=== PATIENT | female | born 1995 | race Caucasian/White ===

== ENCOUNTER → 2020-01-12 12:39 | Outpatient (BNVA) | payer MEDICAID, SELFPAY | PROVIDERS: PCP Family Medicine; Referring Provider Family Medicine; Visit Provider Internal Medicine | DX: Z76.89 Persons encountering health services in other specified circumstances (principal) ==

== ENCOUNTER 2020-02-28 02:34 | Emergency (ER) | payer MEDICAID, SELFPAY | END 2020-02-28 05:26 | disposition left against medical advice (07) | PROVIDERS: Emergency Provider Emergency Medicine; PCP Family Medicine | DX: R10.9 Unspecified abdominal pain (principal) ==

== ENCOUNTER → 2020-03-01 11:35 | Outpatient (BNVA) | payer MEDICAID, SELFPAY | PROVIDERS: PCP Family Medicine; Visit Provider Internal Medicine | DX: Z76.89 Persons encountering health services in other specified circumstances (principal) ==

== ENCOUNTER 2020-03-27 13:27 | Emergency (ER) | payer MEDICAID, SELFPAY ==
--- NOTE | ~2020-03-27 | XR_ITS ---
EXAMINATION: XR ANKLE, LEFT CLINICAL INFORMATION: Twisted ankle COMPARISON: None TECHNIQUE: AP, lateral, and mortise views of the left ankle. FINDINGS: There is a bifid appearance of the distal fibula but no fracture is seen. No widening of the ankle mortise. Talar dome is intact. There is lateral greater than medial soft tissue swelling. XR/XR ankle LT min 3V IMPRESSION: There is soft tissue swelling but no acute osseous abnormality of the ankle.
[2020-03-27 16:01] VITALS: BP 142/78; PULSE 66; RESP 18; TEMP 36.5; O2SAT 100; BMI 38.7
--- NOTE | 2020-03-27 17:13 | ED.LOWEXIN ---
HPI - Extremity Injury (Lower) General Chief Complaint: Extremity Injury, Lower Stated Complaint: ankle injury Time Seen by Provider: 03/27/20 17:09 Source: patient Mode of arrival: ambulatory Limitations: no limitations History of Present Illness HPI Narrative: 24-year-old female with no significant past medical history presents with left ankle pain. Patient stated that she slipped in her ankle rolled under her, and heard a pop. She has a difficult time with flexion and extension, does not have any pain on eversion. She applied ice but states that it is difficult to walk on. MD complaint: ankle injury Onset (ago): hour(s) (Within the hour of arrival) Type of Injury: inversion Place: home Severity: moderate Severity scale (1-10): 6 Relieving factors: nothing Exacerbating factors: weight bearing, movement and palpation Context: walking Associated symptoms: snap/pop sensation and able to partially bear weight Other symptoms: none Related Data Home Medications Medication Instructions Recorded Confirmed acetaminophen 325 mg tablet 650 mg PO Q6H PRN 01/12/20 01/12/20 albuterol sulfate 90 mcg/actuation 2 puff INHALATION Q6H PRN 01/12/20 01/12/20 aerosol inhaler loratadine 10 mg tablet 10 mg PO DAILY 01/12/20 01/12/20 meclizine 12.5 mg tablet 12.5 mg PO DAILY 01/12/20 01/12/20 sumatriptan succinate 50 mg tablet 50 mg PO Q2-4H PRN 01/12/20 01/12/20 Previous Rx's Medication Instructions Recorded ibuprofen 600 mg PO TID PRN #30 tab 03/27/20 Allergies Allergy/AdvReac Type Severity Reaction Status Date / Time No Known Allergies Allergy Verified 03/27/20 16:01 Review of Systems Review of Systems: Constitutional: No Fever, No Chills ENT/Mouth: No Ear Pain, No Hoarseness, No sore throat Eyes: No Eye Pain, No Swelling, No Redness, No Foreign Body Cardiovascular: No Chest Pain, No SOB Respiratory: No Cough, No Dyspnea Gastrointestinal: No Nausea, No Vomiting, No Diarrhea, No abdominal Pain Genitourinary: No Dysuria, No Hematuria Musculoskeletal: positive left ankle pain, No Myalgias, No Joint Swelling Skin: No Skin lacerations, No rash Neuro: No Weakness, No Numbness, No Paresthesias, No Loss of Consciousness, No Dizziness, No Headache Psych: No Anxiety/Panic, No Depression Heme/Lymph: no easy bruising, no Lymphadenopathy Endocrine: No Polyuria, No Polydipsia Yes all other systems are reviewed and are negative [facility] Past Medical History Attestation statement: The following information was validated with the patient. Source: old records reviewed Medical History Amenorrhea Migraine Vitamin D deficiency Weight loss Surgical History [place] teeth extracted Family History Family History Father Diabetes High cholesterol Mother Hypertension Depression Social History Social History Alcohol intake: current Smoking Status: Current every day smoker Cigarettes Per Day: 6 Years Smoked: 5 Advance Directives: No Advance Directives Information Provided: Yes Physical Exam Vital Signs: Vital Signs: Last Vital Signs Temp 97.7 F 03/27/20 16:01 Pulse 66 03/27/20 16:01 Resp 18 03/27/20 16:01 BP 142/78 H 03/27/20 16:01 Pulse Ox 100 03/27/20 16:01 Body Mass Index 38.7 Appearance: Alert. Oriented X3. Mild distress. Eyes: Pupils equal, round and reactive to light. ENT: Pharynx normal. Neck: Normal inspection. Neck supple. CVS: Normal heart rate and rhythm. Pulses normal. Respiratory: No respiratory distress. Breath sounds normal. Abdomen: Soft and nontender. Skin: Skin warm and dry. Normal skin color. Normal skin turgor. Extremities: Tender to palpation to the lateral malleolar, strength 5/5 however tender on flexion, pain on internal rotation to the left ankle. Right ankle has full range of motion with no indication of injury. Neuro: No motor deficit. No sensory deficit. Course Course Course Narrative: 24-year-old female presents with a rolled left ankle, x-rays are negative for fracture or dislocation, will have patient follow-up with Orthopedics as this is suspected to be a sprain. Will place an Vishnu wrap, give crutches, and Motrin for pain management. Patient verbalized understanding of and agrees plan of care discharge home. MDM - Extremity Injury (Lower) Differential Diagnosis Differential diagnosis: Likely ankle sprain and strain Medical Records Attestation: I reviewed the patient's medical records. Lab Data Attestation: I reviewed the patient's lab results. Imaging Data Left ankle x-ray: Attestation: I personally reviewed and interpreted this imaging study as follows: Radiologist's impression: EXAMINATION: XR ANKLE, LEFT CLINICAL INFORMATION: Twisted ankle COMPARISON: None TECHNIQUE: AP, lateral, and mortise views of the left ankle. FINDINGS: There is a bifid appearance of the distal fibula but no fracture is seen. No widening of the ankle mortise. Talar dome is intact. There is lateral greater than medial soft tissue swelling. XR/XR ankle LT min 3V IMPRESSION: There is soft tissue swelling but no acute osseous abnormality of the ankle. Discharge Plan Discharge Clinical Impression: Sprain and strain of left ankle Patient Disposition: Home, Self-Care Instructions: Ankle Sprain (ED) Additional Instructions: You were evaluated for injury sustained to the left ankle. Please follow-up with orthopedics. Use Vishnu wrap, ice and Motrin to help reduce pain and swelling. Use crutches to ambulate. It is suspected that you have a ligament or tendon injury. Thank you for choosing this emergency department for evaluation. Please follow-up with primary care physician as needed. Return to the emergency department for any new, concerning, or worsening symptoms. Prescriptions: New ibuprofen 600 mg tablet 600 mg PO TID PRN (Reason: pain) Qty: 30 RF: 0 No Action acetaminophen [Tylenol] 325 mg tablet 650 mg PO Q6H PRNRF: 0 meclizine 12.5 mg tablet 12.5 mg PO DAILY RF: 0 loratadine 10 mg tablet 10 mg PO DAILY RF: 0 sumatriptan succinate [Imitrex] 50 mg tablet 50 mg PO Q2-4H PRNRF: 0 albuterol sulfate 90 mcg/actuation HFA aerosol inhaler 2 puff inhalation Q6H PRNRF: 0 Referrals: Ken Rodriguez MD [Physician] - 2 days (Left ankle sprain) Stand Alone Forms: Work/School Release Interventions: ED Discharge Assessment Last Done: 03/27/20 18:27 Discharge Date/Time: 03/27/20 18:29
[2020-03-27] MEDS: Ibuprofen 600 MG TABLET PO (17:48)
== END 2020-03-27 18:29 | disposition home or self-care (01) ==
PROVIDERS: Emergency Provider Internal Medicine; PCP Family Medicine
DX: S93.402A Sprain of unspecified ligament of left ankle, initial encounter (principal); S96.912A Strain of unspecified muscle and tendon at ankle and foot level, left foot, initial encounter; X50.1XXA Overexertion from prolonged static or awkward postures, initial encounter; Y93.9 Activity, unspecified; Y92.014 Private driveway to single-family (private) house as the place of occurrence of the external cause; Y99.9 Unspecified external cause status
CPT/HCPCS: 73610; 99283

== ENCOUNTER → 2020-03-29 07:33 | Outpatient (BNVA) | payer MEDICAID, SELFPAY | PROVIDERS: PCP Family Medicine; Visit Provider Internal Medicine ==

== ENCOUNTER → 2020-06-26 08:19 | Outpatient (BNVA) | payer MEDICAID, SELFPAY | PROVIDERS: PCP Family Medicine; Visit Provider Internal Medicine ==

== ENCOUNTER → 2020-07-19 13:52 | Outpatient (BNVA) | payer MEDICAID, SELFPAY | PROVIDERS: PCP Family Medicine; Visit Provider Internal Medicine ==

== ENCOUNTER 2020-09-08 21:53 | Emergency (ER) | payer MEDICAID, SELFPAY ==
--- NOTE | ~2020-09-08 | US_ITS ---
EXAMINATION: ULTRASOUND PELVIS CLINICAL INFORMATION: Heavy vaginal bleeding COMPARISON: 10/18/2019 TECHNIQUE: Sonographic evaluation of the pelvis was performed transabdominally and transvaginally. FINDINGS: The uterus measures 11.0 cm in length and 5.0 x 6.0 cm in AP and transverse dimensions. The endometrial stripe measures 0.6 cm in thickness. The right ovary measures 4.2 x 2.4 x 3.4 cm and appears unremarkable. The left ovary measures 4.2 x 2.3 x 2.8 cm and also appears unremarkable. No free fluid is seen. US/US pelvic and transvaginal IMPRESSION: No acute findings identified.
[2020-09-08 22:16] VITALS: BP 136/92; PULSE 76; RESP 18; TEMP 36.6; O2SAT 98; BMI 38.9
--- NOTE | 2020-09-08 23:06 | ED_ITS ---
HPI - Female Genitourinary General Chief complaint: Vaginal Bleeding Stated complaint: Heavy menstrual Time Seen by Provider: 09/08/20 22:41 Source: patient Mode of arrival: ambulatory Limitations: no limitations History of Present Illness MD elicited complaint: vaginal bleeding Pertinent past history: other (PCOS and heavy periods) Onset (ago): day(s) (20 days ago) Location of symptoms: suprapubic Severity: moderate Quality of pain: cramping Consistency: constant Vaginal bleeding: heavy Exacerbating factors: none Relieving factors: none Associated symptoms: abdominal pain and weakness Treatment prior to arrival: none Related Data Home Medications Medication Instructions Recorded Confirmed acetaminophen 325 mg tablet 650 mg PO Q6H PRN 01/12/20 06/26/20 albuterol sulfate 90 mcg/actuation 2 puff INHALATION Q6H PRN 01/12/20 06/26/20 aerosol inhaler sumatriptan succinate 50 mg tablet 50 mg PO Q2-4H PRN 01/12/20 06/26/20 Previous Rx's Medication Instructions Recorded ibuprofen 600 mg PO TID PRN #30 tab 03/27/20 medroxyprogesterone [Provera] 10 mg PO DAILY 9 Days #9 tab 09/09/20 nitrofurantoin monohyd/m-cryst 100 mg PO BID 5 Days #10 cap 09/09/20 [Macrobid] Allergies Allergy/AdvReac Type Severity Reaction Status Date / Time No Known Allergies Allergy Verified 07/19/20 15:17 Review of Systems Review of Systems: Constitutional : No Fever, No Chills ENT/Mouth : No sore throat, No Rhinorrhea Eyes: No Eye Pain, No Redness Cardiovascular : No Chest Pain, No SOB Respiratory : No Cough, No Sputum, No Wheezing Gastrointestinal : positive Nausea, No Vomiting, No Diarrhea, positive abdominal pain, Genitourinary : positive irregular bleeding, No Dysuria, No Urinary Frequency, positive pelvic pain Musculoskeletal : No Myalgias Skin : No rash Neuro : pos Weakness, No Headache Psych : No Anxiety/Panic, No Depression Heme/Lymph: No bruising, No Lymphadenopathy Endocrine : No Polyuria, No Polydipsia All other systems reviewed and are negative PMFSH Past Medical History Attestation statement: The following information was validated with the patient. Medical History Amenorrhea Migraine Vitamin D deficiency Weight loss Surgical History History of surgery [place] teeth extracted Family History Family History Father Diabetes High cholesterol Mother Hypertension Depression Social History Social History Alcohol intake: unknown Patient Tobacco Use Status: Current everyday Tobacco user Cigarettes Per Day: 3 Years Smoked: 5 Use of substances other than those prescribed or required for medical reasons: Unknown Advance Directives: No Advance Directives Information Provided: No Patient : No Physical Exam Vital Signs: Vital Signs: Last Vital Signs Temp 97.9 F 09/08/20 22:16 Pulse 65 09/09/20 00:22 Resp 16 09/09/20 00:22 BP 105/58 L 09/09/20 00:22 Pulse Ox 98 09/09/20 00:22 Body Mass Index 38.9 Appearance: Alert. Oriented X3. No acute distress. Eyes: Pupils equal, round and reactive to light. ENT: Pharynx normal. Neck: Normal inspection. Neck supple. CVS: Normal heart rate and rhythm. Pulses normal. Respiratory: No respiratory distress. Breath sounds normal. Abdomen: Soft and mild suprapubic ttp no rebound or guarding : 1 scopette of blood no clots seen Skin: Skin warm and dry. Normal skin color. Normal skin turgor. Extremities: No lower extremity edema. No calf ttp Neuro: Oriented X 3. No motor deficit. No sensory deficit. Course Course Course Narrative: VS and H/H stable plan for DC MDM - Female Genitourinary MDM Narrative Medical decision making narrative: 25 yo female with a hx of HTN, PCOS at this time c/o suprapubic cramping and heavy vaginal bleeding - at this time labs, US ordered, states no OCPs work for - possible provera with close follow up with OBGYN given history of withdrawal bleeding states no other combinations work for her, dispo per results and findings. Lab Data Result diagrams: 09/08/20 23:17 09/09/20 00:26 Labs: Lab Results 09/08/20 09/09/20 09/09/20 Range/Units 23:17 00:26 00:26 WBC 13.6 H (4.8-10.8) X10*3/uL RBC 4.40 (4.20-5.50) X10*6/uL Hgb 13.1 (12.0-16.0) g/dl Hct 38.8 (37-47) % MCV 88.2 (80-98) fL MCH 29.8 (27.0-33.0) pg MCHC 33.8 (31.0-35.0) g/dl RDW 12.6 (11.0-16.0) % Plt Count 267 (160-400) X10*3/uL MPV 11.2 (9.4-12.3) fL Immature Gran % (Auto) 0.4 (0.0-0.4) % Neut % (Auto) 59.9 (45-73) % Lymph % (Auto) 32.5 (20-40) % [place] % (Auto) 5.7 (2-11) % Eos % (Auto) 1.1 (0-4) % Baso % (Auto) 0.4 (0-2) % Lymph # (Auto) 4.4 (1.2-4.9) X10*3/uL [place] # (Auto) 0.8 (0.1-1.2) X10*3/uL Eos # (Auto) 0.2 (0.0-0.4) X10*3/uL Baso # (Auto) 0.1 (0.0-0.2) X10*3/uL Abs Immat Gran (auto) 0.06 H (0.00-0.03) X10*3/uL Absolute Neuts (auto) 8.1 (2.0-8.3) X10*3/uL Absolute Nucleated RBC 0.000 (0.0-0.012) X10*3/uL Nucleated RBC % (auto) 0.0 (0.0-0.2) /100WBC Sodium 136 (135-145) mmol/L Potassium 3.1 L (3.3-5.1) mmol/L Chloride 99 (96-108) mmol/L Carbon Dioxide 29 (22-29) mmol/L Anion Gap 11 L (12-20) BUN 13 (9-16) mg/dL Creatinine 0.77 (0.5-1.4) mg/dL Estim Creat Clear Calc 115.4 Estimated GFR > 60 Random Glucose 119 H (60-115) mg/dL Calcium 9.3 (8.4-10.2) mg/dL Total Bilirubin 0.2 (0.0-1.0) mg/dL AST 23 (5-31) U/L ALT 19 (0-31) U/L Alkaline Phosphatase 64 (39-117) U/L Total Protein 7.0 (6.5-8.0) g/dL Albumin 3.9 (3.5-5.0) g/dL Urine Color RED Urine Appearance CLOUDY Urine pH 7.0 (5.0-8.0) Ur Specific [place] <= 1.005 (1.005-1.025) Urine Protein 2+ H (NEG-TRACE) MG/DL Urine Glucose (UA) NEG (NEG) MG/DL Urine Ketones NEG (NEG) MG/DL Urine Blood 3+ H (NEG) Urine Nitrite POS H (NEG) Ur Leukocyte Esterase 3+ H (NEG) Urine RBC 30-49 H (0) /HPF Urine WBC 0-2 (0-4) /HPF Ur Squamous Epith Cells 1+ /LPF Amorphous Sediment 3+ /LPF Urine Bacteria NONE /LPF Urine Test (NEGATIVE) 09/09/20 Range/Units 00:26 WBC (4.8-10.8) X10*3/uL RBC (4.20-5.50) X10*6/uL Hgb (12.0-16.0) g/dl Hct (37-47) % MCV (80-98) fL MCH (27.0-33.0) pg MCHC (31.0-35.0) g/dl RDW (11.0-16.0) % Plt Count (160-400) X10*3/uL MPV (9.4-12.3) fL Immature Gran % (Auto) (0.0-0.4) % Neut % (Auto) (45-73) % Lymph % (Auto) (20-40) % [place] % (Auto) (2-11) % Eos % (Auto) (0-4) % Baso % (Auto) (0-2) % Lymph # (Auto) (1.2-4.9) X10*3/uL [place] # (Auto) (0.1-1.2) X10*3/uL Eos # (Auto) (0.0-0.4) X10*3/uL Baso # (Auto) (0.0-0.2) X10*3/uL Abs Immat Gran (auto) (0.00-0.03) X10*3/uL Absolute Neuts (auto) (2.0-8.3) X10*3/uL Absolute Nucleated RBC (0.0-0.012) X10*3/uL Nucleated RBC % (auto) (0.0-0.2) /100WBC Sodium (135-145) mmol/L Potassium (3.3-5.1) mmol/L Chloride (96-108) mmol/L Carbon Dioxide (22-29) mmol/L Anion Gap (12-20) BUN (9-16) mg/dL Creatinine (0.5-1.4) mg/dL Estim Creat Clear Calc Estimated GFR Random Glucose (60-115) mg/dL Calcium (8.4-10.2) mg/dL Total Bilirubin (0.0-1.0) mg/dL AST (5-31) U/L ALT (0-31) U/L Alkaline Phosphatase (39-117) U/L Total Protein (6.5-8.0) g/dL Albumin (3.5-5.0) g/dL Urine Color Urine Appearance Urine pH (5.0-8.0) Ur Specific [place] (1.005-1.025) Urine Protein (NEG-TRACE) MG/DL Urine Glucose (UA) (NEG) MG/DL Urine Ketones (NEG) MG/DL Urine Blood (NEG) Urine Nitrite (NEG) Ur Leukocyte Esterase (NEG) Urine RBC (0) /HPF Urine WBC (0-4) /HPF Ur Squamous Epith Cells /LPF Amorphous Sediment /LPF Urine Bacteria /LPF Urine Test NEGATIVE (NEGATIVE) Discharge Plan Discharge Clinical Impression: Vaginal bleeding, UTI (urinary tract infection), Hypokalemia Patient Disposition: Home, Self-Care Instructions: Dysfunctional Uterine Bleeding (ED), Urinary Tract Infection in Women (ED), Hypokalemia (ED) Additional Instructions: return to ED for any worsening symptoms or concerns please call your OBGYN as soon as possible ultrasound findings: FINDINGS: The uterus measures 11.0 cm in length and 5.0 x 6.0 cm in AP and transverse dimensions. The endometrial stripe measures 0.6 cm in thickness. The right ovary measures 4.2 x 2.4 x 3.4 cm and appears unremarkable. The left ovary measures 4.2 x 2.3 x 2.8 cm and also appears unremarkable. No free fluid is seen. US/US pelvic and transvaginal IMPRESSION: No acute findings identified. Prescriptions: New medroxyprogesterone [Provera] 10 mg tablet 10 mg PO DAILY 9 Days Qty: 9 RF: 0 nitrofurantoin monohyd/m-cryst [Macrobid] 100 mg capsule 100 mg PO BID 5 Days Qty: 10 RF: 0 No Action ibuprofen 600 mg tablet 600 mg PO TID PRN (Reason: pain) Qty: 30 RF: 0 acetaminophen [Tylenol] 325 mg tablet 650 mg PO Q6H PRNRF: 0 sumatriptan succinate [Imitrex] 50 mg tablet 50 mg PO Q2-4H PRNRF: 0 albuterol sulfate 90 mcg/actuation HFA aerosol inhaler 2 puff inhalation Q6H PRNRF: 0 Stand Alone Forms: Work/School Release
[2020-09-08 23:22] LABS: MANUAL DIFF FLAG NO
[2020-09-08 23:23] LABS: Basophils Absolute Auto 0.1 X10*3/uL (0.0-0.2); Basophils Percent Auto 0.4 % (0-2); Eosinophils Absolute Auto 0.2 X10*3/uL (0.0-0.4); Eosinophils Percent Auto 1.1 % (0-4); Hematocrit 38.8 % (37-47); Hemoglobin 13.1 g/dl (12.0-16.0); Imm Gran Abs Auto 0.06 X10*3/uL (0.00-0.03); Imm Gran Pct Auto 0.4 % (0.0-0.4); Lymphocytes Absolute Auto 4.4 X10*3/uL (1.2-4.9); Lymphocytes Percent Auto 32.5 % (20-40); Mean Corpuscular HGB Conc 33.8 g/dl (31.0-35.0); Mean Corpuscular Hemoglobin 29.8 pg (27.0-33.0); Mean Corpuscular Volume 88.2 fL (80-98); Mean Platelet Volume 11.2 fL (9.4-12.3); Monocytes Absolute Auto 0.8 X10*3/uL (0.1-1.2); Monocytes Percent Auto 5.7 % (2-11); Neutrophils Absolute Auto 8.1 X10*3/uL (2.0-8.3); Neutrophils Percent Auto 59.9 % (45-73); Platelet Count 267 X10*3/uL (160-400); Red Cell Distribution Width 12.6 % (11.0-16.0); White Blood Count 13.6 X10*3/uL (4.8-10.8)
[2020-09-08] MEDS: Ibuprofen 600 MG TABLET PO (23:24)
[2020-09-08] MEDS: Acetaminophen 325 MG TABLET 650 MG PO (23:24)
[2020-09-08] MEDS: 0.9 % Sodium Chloride 1,000 ML 999 ML IVCONT (23:26)
[2020-09-09 00:22] VITALS: BP 105/58; PULSE 65; RESP 16; O2SAT 98
[2020-09-09 00:42] LABS: Glucose Urine UA NEG (NEG); Leukocyte Esterase Urine 3+ (NEG); Nitrite Urine POS (NEG); Specific Gravity - Urine <= 1.005 (1.005-1.025); UACC Culture Trigger YES; Urine Blood 3+ (NEG); Urine Ketones NEG (NEG); Urine Protein 2+ MG/DL (NEG-TRACE)
[2020-09-09 00:43] LABS: Appearance Urine CLOUDY; Color Urine RED
[2020-09-09 00:44] LABS: UPreg QC Valid YES; Urine Pregnancy NEGATIVE (NEGATIVE)
[2020-09-09 00:46] LABS: Amorphous Sediment Urine 3+ /LPF; RBC Urine 30-49 /HPF (0); Squamous Epithelial Cell Urine 1+ /LPF; WBC Urine 0-2 /HPF (0-4)
[2020-09-09 00:59] LABS: Alanine Aminotransferase 19 U/L (0-31); Albumin Level 3.9 g/dL (3.5-5.0); Alkaline Phosphatase 64 U/L (39-117); Anion Gap 11 (12-20); Aspartate Amino Transferase 23 U/L (5-31); Bilirubin Total 0.2 mg/dL (0.0-1.0); Blood Urea Nitrogen 13 mg/dL (9-16); Calcium 9.3 mg/dL (8.4-10.2); Carbon Dioxide 29 mmol/L (22-29); Chloride 99 mmol/L (96-108); Creatinine Clr Calc Pharmacy 115.4; Estimated Glomerular Filt Rate > 60; Glucose Random 119 mg/dL (60-115); Potassium 3.1 mmol/L (3.3-5.1); Sodium 136 mmol/L (135-145)
[2020-09-09] MEDS: cefTRIAXone sodium 1 GM in 0.9 % Sodium Chloride 50 ML IV (01:12)
[2020-09-09] MEDS: Potassium Chloride ER 20 MEQ TAB.ER.PRT 40 MEQ PO (01:12)
== END 2020-09-09 01:42 | disposition home or self-care (01) ==
PROVIDERS: Emergency Provider Emergency Medicine; PCP Family Medicine
DX: N93.9 Abnormal uterine and vaginal bleeding, unspecified (principal); N39.0 Urinary tract infection, site not specified; E87.6 Hypokalemia; F17.210 Nicotine dependence, cigarettes, uncomplicated; Z71.6 Tobacco abuse counseling; Z79.899 Other long term (current) drug therapy
CPT/HCPCS: 36415; 76830; 76856; 80053; 81001; 81003; 81025; 85025; 87086; 96361; 96365; 96375; 99285; J0696

== ENCOUNTER → 2020-10-04 11:56 | Outpatient (BNVA) | payer MEDICAID, SELFPAY | PROVIDERS: PCP Family Medicine; Visit Provider Internal Medicine ==

== ENCOUNTER → 2021-01-17 09:53 | Outpatient (BNVA) | payer MEDICAID, SELFPAY | PROVIDERS: PCP Family Medicine; Visit Provider Internal Medicine ==

== ENCOUNTER 2022-08-30 12:17 | Outpatient (REF) | payer MEDICAID, SELFPAY ==
--- NOTE | ~2022-08-30 | XR_ITS ---
EXAMINATION: XR KNEE, RIGHT CLINICAL INFORMATION: Right knee pain. No injury. COMPARISON: None available. TECHNIQUE: Four views of the right knee. FINDINGS: Alignment is anatomic. Joint spaces are maintained. No displaced fracture. No significant joint effusion. XR/XR knee RT 3V IMPRESSION: No acute abnormality.
== END 2022-08-30 12:18 | disposition home or self-care (01) ==
LOC: HO.HHCX 12:17
PROVIDERS: Visit Provider Internal Medicine
DX: M25.561 Pain in right knee (principal)
CPT/HCPCS: 73562

== ENCOUNTER 2022-11-15 09:54 | Outpatient (REF) | payer MEDICAID, SELFPAY ==
[2022-11-15 11:14] LABS: MANUAL DIFF FLAG NO
[2022-11-15 11:31] LABS: Basophils Absolute Auto 0.1 X10*3/uL (0.0-0.2); Eosinophils Absolute Auto 0.1 X10*3/uL (0.0-0.4); Eosinophils Percent Auto 1.4 % (0-4); Hematocrit 46.6 % (37.0-47.0); Hemoglobin 15.6 g/dl (12.0-16.0); Imm Gran Abs Auto 0.04 X10*3/uL (0.00-0.03); Imm Gran Pct Auto 0.4 % (0.0-0.4); Lymphocytes Absolute Auto 3.2 X10*3/uL (1.2-4.9); Lymphocytes Percent Auto 33.5 % (20-40); Mean Corpuscular HGB Conc 33.5 g/dl (31.0-35.0); Mean Corpuscular Hemoglobin 30.1 pg (27.0-33.0); Mean Corpuscular Volume 89.8 fL (80.0-98.0); Mean Platelet Volume 11.9 fL (9.4-12.3); Monocytes Absolute Auto 0.6 X10*3/uL (0.1-1.2); Monocytes Percent Auto 6.1 % (2-11); Neutrophils Absolute Auto 5.6 x10*3/uL (2.0-8.3); Neutrophils Percent Auto 57.6 % (45-73); Platelet Count 306 X10*3/uL (160-400); Red Blood Count 5.19 X10*6/uL (4.20-5.50); Red Cell Distribution Width 13.4 % (11.0-16.0); White Blood Count 9.7 X10*3/uL (4.8-10.8)
[2022-11-15 11:41] LABS: Alanine Aminotransferase 43 U/L (0-31); Albumin Level 4.5 g/dL (3.5-5.0); Alkaline Phosphatase 78 U/L (39-117); Anion Gap 17 (12-20); Aspartate Amino Transferase 24 U/L (5-31); Bilirubin Direct < 0.2 mg/dL (0.0-0.5); Bilirubin Total 0.2 mg/dL (0.0-1.0); Blood Urea Nitrogen 11 mg/dL (9-16); Calcium 9.9 mg/dL (8.4-10.2); Carbon Dioxide 25 mmol/L (22-29); Chloride 99 mmol/L (96-108); Cholesterol 251 mg/dL (<200); Estimated Glomerular Filt Rate > 60; Glucose Random 123 mg/dL (60-115); HDL Cholesterol 46 mg/dL (>40); Iron 53 mcg/dL (30-160); LDL Cholesterol Calculated 156 mg/dL (<100); Percent Iron Saturation 18 % (15-50); Potassium 4.2 mmol/L (3.3-5.1); Sodium 137 mmol/L (135-145); Total Iron Binding Capacity 297 mcg/dL (228-428); Total Protein 8.4 g/dL (6.5-8.0); Triglycerides 246 mg/dL (<150); Unsaturated Iron Binding 244 ug/dL
[2022-11-15 11:58] LABS: Estimated Average Glucose 126 mg/dL; Vitamin B12 464 pg/mL (200-900)
[2022-11-15 12:00] LABS: Ferritin 90 ng/mL (10-122); HCG Quantitative < 2 mIU/mL; TSH reflex Free T4 18.49 uIU/mL (0.32-4.0)
[2022-11-15 13:01] LABS: Free T4 (Free Thyroxine) 0.71 ng/dL (0.71-1.85)
[2022-11-15 13:40] LABS: CT PCR NOT DETECTED (Not Detect.); NG PCR NOT DETECTED (Not Detect.)
[2022-11-16 03:29] LABS: Syphilis Screen Nonreactive (Nonreactive)
[2022-11-16 03:37] LABS: HIV AB/AG Nonreactive (Nonreactive); HIV Num 1 0.05 S/CO (0.00-0.99); ~Hepatitis C Antibody Nonreactive (Nonreactive)
== END 2022-11-15 09:55 | disposition home or self-care (01) ==
LOC: HO.HHCL 09:54
PROVIDERS: Visit Provider Family Medicine
DX: Z11.4 Encounter for screening for human immunodeficiency virus [HIV] (principal); Z11.3 Encounter for screening for infections with a predominantly sexual mode of transmission; E28.2 Polycystic ovarian syndrome; N92.6 Irregular menstruation, unspecified; R73.03 Prediabetes
CPT/HCPCS: 0353U; 80048; 80061; 80076; 82607; 82728; 83036; 83540; 84439; 84443; 84702; 85025; 86780; 86803; 87389

== ENCOUNTER 2023-03-04 23:41 | Emergency (ER) | payer MEDICAID, SELFPAY ==
[2023-03-04 23:53] VITALS: BP 142/90; PULSE 76; RESP 16; TEMP 37.1; O2SAT 97; BMI 43.8
[2023-03-05 02:35] VITALS: BP 146/86; PULSE 82; RESP 16; TEMP 37.1; O2SAT 98
[2023-03-05 06:03] VITALS: BP 147/92; PULSE 74; RESP 16; TEMP 36.4; O2SAT 100
== END 2023-03-05 07:45 | disposition left against medical advice (07) ==
PROVIDERS: Emergency Provider Emergency Medicine; PCP Family Medicine
DX: R51.9 Headache, unspecified (principal)
CPT/HCPCS: 99281

== ENCOUNTER 2023-04-28 12:00 | Outpatient (REF) | payer MEDICAID, SELFPAY ==
[2023-04-29 13:02] LABS: Appearance Urine Turbid; Color Urine Orange; Glucose Urine UA Negative (Negative); Leukocyte Esterase Urine Small (1+) (Negative); Nitrite Urine Positive (Negative); Specific Gravity - Urine 1.025 (1.005-1.025); UMIC TRIGGER UACC YES; Urine Blood Large (3+) (Negative); Urine Ketones Negative (Negative); Urine Protein >=1000 (4+) mg/dL (Neg-Trace)
[2023-04-29 13:03] LABS: Bacteria Urine 4+ (None Seen); RBC Urine >20 /HPF (0-2); Squamous Epithelial Cell Urine >20 /HPF (0-2); UACC Culture Trigger YES; WBC Urine >50 /HPF (0-5)
== END 2023-04-28 12:01 | disposition home or self-care (01) ==
LOC: HO.HHCLNP 12:00
PROVIDERS: Visit Provider Internal Medicine
DX: N30.01 Acute cystitis with hematuria (principal)
CPT/HCPCS: 81001; 87086; 87088; 87186

== ENCOUNTER 2023-09-01 09:54 | Outpatient (REF) | payer MEDICAID, SELFPAY ==
[2023-09-01 11:17] LABS: Hematocrit 44.4 % (37.0-47.0); Hemoglobin 14.8 g/dl (12.0-16.0); Mean Corpuscular HGB Conc 33.3 g/dl (31.0-35.0); Mean Corpuscular Volume 90.1 fL (80.0-98.0); Mean Platelet Volume 11.2 fL (9.4-12.3); Platelet Count 343 X10*3/uL (160-400); Red Blood Count 4.93 X10*6/uL (4.20-5.50); Red Cell Distribution Width 13.1 % (11.0-16.0); White Blood Count 9.1 X10*3/uL (4.8-10.8)
[2023-09-01 11:38] LABS: Alanine Aminotransferase 29 U/L (0-31); Albumin Level 4.1 g/dL (3.5-5.0); Alkaline Phosphatase 72 U/L (39-117); Amylase 73 U/L (28-100); Anion Gap 10 (12-20); Aspartate Amino Transferase 21 U/L (5-31); Bilirubin Direct 0.2 mg/dL (0.0-0.5); Bilirubin Total 0.5 mg/dL (0.0-1.0); Blood Urea Nitrogen 10 mg/dL (9-16); Calcium 9.1 mg/dL (8.4-10.2); Carbon Dioxide 27 mmol/L (22-29); Chloride 106 mmol/L (96-108); Cholesterol 215 mg/dL (<200); Estimated Glomerular Filt Rate > 60; Glucose Random 101 mg/dL (60-115); HDL Cholesterol 35 mg/dL (>40); LDL Cholesterol Calculated 150 mg/dL (<100); Lipase 31 U/L (8-78); Potassium 4.2 mmol/L (3.3-5.1); Sodium 139 mmol/L (135-145); Total Protein 7.6 g/dL (6.5-8.0); Triglycerides 152 mg/dL (<150)
[2023-09-01 11:43] LABS: Estimated Average Glucose 120 mg/dL; Hemoglobin A1c % 5.8 % (<6.0)
[2023-09-01 11:53] LABS: Free T4 (Free Thyroxine) 0.88 ng/dL (0.71-1.85); Thyroid Stimulating Hormone 1.33 uIU/mL (0.32-4.0)
== END 2023-09-01 09:55 | disposition home or self-care (01) ==
LOC: HO.HHCL 09:54
PROVIDERS: Visit Provider Family Medicine
DX: R10.13 Epigastric pain (principal)
CPT/HCPCS: 36415; 80048; 80061; 80076; 82150; 82306; 83036; 83690; 84439; 84443; 85027

== ENCOUNTER 2023-12-27 19:13 | Emergency (ER) | payer MEDICAID, SELFPAY ==
--- NOTE | 2023-12-27 19:16 | ECG_ITS ---
Test Reason : CP Blood Pressure : / mmHG Vent. Rate : 080 BPM Atrial Rate : 080 BPM P-R Int : 130 ms QRS Dur : 068 ms QT Int : 368 ms P-R-T Axes : 018 -08 024 degrees QTc Int : 424 ms Normal sinus rhythm Minimal voltage criteria for LVH, may be normal variant ( R in aVL ) Borderline ECG When compared with ECG of 04-SEP-2018 04:02, No significant change was found Referred By: Generic ED Physician Electronically Signed By:JOSSE ARMSTRONG MD
[2023-12-27 19:24] VITALS: BP 124/85; PULSE 80; RESP 16; TEMP 36.2; O2SAT 97; BMI 37.1
--- NOTE | 2023-12-27 19:26 | ED_ITS ---
HPI - Chest Pain General Chief Complaint: Chest Pain Stated Complaint: Chest Pains Time Seen by Provider: 12/27/23 21:08 Source: patient Mode of arrival: ambulatory Limitations: no limitations History of Present Illness ED Provider: alba BURCIAGA narrative: Patient no significant past medical history nonsmoker nonalcoholic no significant cardiac history in the family no substance abuse comes here for pain in the mid chest since she woke up in the which increases on and palpation no shortness a breath no cough no fever no chills Related Data Home Medications ?Medication ?Instructions ?Recorded ?Confirmed acetaminophen 325 mg tablet 650 mg PO Q6H PRN 01/12/20 01/17/21 (Tylenol) albuterol sulfate 90 mcg/actuation 2 puff inhalation Q6H PRN 01/12/20 01/17/21 aerosol inhaler sumatriptan succinate 50 mg tablet 50 mg PO Q2-4H PRN 01/12/20 01/17/21 (Imitrex) hydrochlorothiazide 25 mg tablet 25 mg PO DAILY 10/04/20 01/17/21 Previous Rx's ?Medication ?Instructions ?Recorded ibuprofen 600 mg tablet 600 mg PO TID PRN pain #30 tabs 03/27/20 ibuprofen 600 mg tablet 600 mg PO Q6H PRN fever or pain 12/27/23 #30 tabs Allergies Allergy/AdvReac Type Severity Reaction Status Date / Time Penicillins [PCN] Allergy Itching Verified 12/27/23 19:26 Review of Systems 2 Review of Systems: Yes all other systems are reviewed and are negative PMFSH Past Medical History Medical History Menorrhagia Weight loss Vitamin D deficiency Amenorrhea Migraine Surgical History History of surgery [place] teeth extracted Family History Family History Father Diabetes High cholesterol Mother Hypertension Depression Social History Social History Alcohol intake: current Alcohol intake frequency: does not drink Patient Tobacco Use Status: Current everyday Tobacco user Cigarettes Per Day: 3 Years Smoked: 5 Smoked in Last 30 Days: Yes Use of substances other than those prescribed or required for medical reasons: No Advance Directives: No Advance Directives Information Provided: Yes Do you have a plan to hurt others: No Plan Patient : No Physical Exam 2 Vital Signs: Vital Signs: Last Vital Signs Temp 98.8 F 12/27/23 21:44 Pulse 75 12/27/23 21:44 Resp 18 12/27/23 21:44 BP 131/71 12/27/23 21:44 Pulse Ox 98 12/27/23 21:44 O2 Del Method Room Air 12/27/23 21:44 BMI result Body Mass Index 37.1 Appearance: Alert. Oriented X3. No acute distress. Eyes: PERRLA, No Nystagmus ENT: Pharynx normal. Oral Mucosa moist Neck: Normal inspection. Neck supple. CVS: Normal heart rate and rhythm. Pulses normal. No murmur rub or gallop tenderness to palpate on 2nd intercostal space bilaterally Respiratory: No respiratory distress. Equal air entry bilateral, no wheezing/rales/rhonchi Abdomen: Soft and nontender. Bowel sounds are present, no mass palpable, no CVA tenderness Skin: Skin warm and dry. Normal skin color. Normal skin turgor. Extremities: No lower extremity edema. No calf tenderness Neuro: Oriented X 3. No motor deficit. Course Course Course Narrative: This is an RME performed by Mio Jean CNP: Additional HPI, ROS, PE not included below will be deferred to primary provider. Patient is a 28-year-old female presenting to emergency department for evaluation of anterior chest pain, fatigue, shortness of breath and nausea. Endorsing weakness to the left arm. Plan: Serum labs, EKG, CXR Medical Decision Making Medical Decision Making MDM Narrative: Patient with heart score of 0 comes here for mid chest pain reproducible on palpation to 2nd intercostal space clinically costochondritis no ischemic changes cardiac enzymes negative will discharge patient home Differential Diagnosis Differential Diagnoses: The differential diagnosis associated with the presentation includes Lab Data [facility] Lab Attestation statement: I reviewed the patient's lab results. 12/27/23 19:39 12/27/23 19:39 Labs: Lab Results 12/27/23 12/27/23 Range/Units 19:39 19:41 WBC 11.5 H (4.8-10.8) X10*3/uL RBC 4.77 (4.20-5.50) X10*6/uL Hgb 14.1 (12.0-16.0) g/dl Hct 42.4 (37.0-47.0) % MCV 88.9 (80.0-98.0) fL MCH 29.6 (27.0-33.0) pg MCHC 33.3 (31.0-35.0) g/dl RDW 13.2 (11.0-16.0) % Plt Count 319 (160-400) X10*3/uL MPV 11.0 (9.4-12.3) fL Immature Gran % (Auto) 0.3 (0.0-0.4) % Neut % (Auto) 59.3 (45-73) % Lymph % (Auto) 31.8 (20-40) % [place] % (Auto) 5.0 (2-11) % Eos % (Auto) 2.8 (0-4) % Baso % (Auto) 0.8 (0-2) % Lymph # (Auto) 3.7 (1.2-4.9) X10*3/uL [place] # (Auto) 0.6 (0.1-1.2) X10*3/uL Eos # (Auto) 0.3 (0.0-0.4) X10*3/uL Baso # (Auto) 0.1 (0.0-0.2) X10*3/uL Abs Immat Gran (auto) 0.03 (0.00-0.03) X10*3/uL Absolute Neuts (auto) 6.8 (2.0-8.3) x10*3/uL Absolute Nucleated RBC 0.000 (0.0-0.012) X10*3/uL Nucleated RBC % (auto) 0.0 (0.0-0.2) /100WBC Sodium 140 (135-145) mmol/L Potassium 3.9 (3.3-5.1) mmol/L Chloride 109 H (96-108) mmol/L Carbon Dioxide 21 L (22-29) mmol/L Anion Gap 14 (12-20) BUN 12 (9-16) mg/dL Creatinine 0.80 (0.5-1.4) mg/dL Estim Creat Clear Calc 105.3 Estimated GFR > 60 Random Glucose 122 H (60-115) mg/dL Calcium 9.4 (8.4-10.2) mg/dL Total Bilirubin 0.2 (0.0-1.0) mg/dL AST 20 (5-31) U/L ALT 26 (0-31) U/L Alkaline Phosphatase 65 (39-117) U/L Troponin I High Sens < 2.7 (<3.5-17.0) ng/L Total Protein 7.6 (6.5-8.0) g/dL Albumin 4.1 (3.5-5.0) g/dL Influenza Type A (PCR) NEGATIVE (Negative) Influenza Type B (PCR) NEGATIVE (Negative) RSV RNA Qual (PCR) NEGATIVE (Negative) SARS-CoV-2 RNA (RT-PCR) NEGATIVE (Negative) Independent Interpretation I performed an independent interpretation of an: EKG Interpretation: Normal sinus rhythm heart rate 80 beats per minute normal axis no acute ST-T changes no acute ischemia Discharge Plan Discharge Clinical Impression: Costalchondritis Patient Disposition: Home, Self-Care Instructions: Costochondritis (ED) Additional Instructions: Take ibuprofen for pain as prescribed Your chest pain from inflammation of the cartilage not from the heart Prescriptions: New ibuprofen 600 mg tablet 600 mg PO Q6H PRN (Reason: fever or pain) Qty: 30 0RF No Action ibuprofen 600 mg tablet 600 mg PO TID PRN (Reason: pain) Qty: 30 0RF acetaminophen [Tylenol] 325 mg tablet 650 mg PO Q6H PRN sumatriptan succinate [Imitrex] 50 mg tablet 50 mg PO Q2-4H PRN Rx Instructions: do not exceed 4 doses per 24 hrs albuterol sulfate 90 mcg/actuation HFA aerosol inhaler 2 puff inhalation Q6H PRN hydrochlorothiazide 25 mg tablet 25 mg PO DAILY Interventions: ED Discharge Assessment Last Done: 12/27/23 21:44 Discharge Date/Time: 12/27/23 21:45 Print Language: Austrian
[2023-12-27 19:45] LABS: MANUAL DIFF FLAG NO
[2023-12-27 19:53] LABS: Basophils Absolute Auto 0.1 X10*3/uL (0.0-0.2); Basophils Percent Auto 0.8 % (0-2); Eosinophils Absolute Auto 0.3 X10*3/uL (0.0-0.4); Eosinophils Percent Auto 2.8 % (0-4); Hematocrit 42.4 % (37.0-47.0); Hemoglobin 14.1 g/dl (12.0-16.0); Imm Gran Abs Auto 0.03 X10*3/uL (0.00-0.03); Imm Gran Pct Auto 0.3 % (0.0-0.4); Lymphocytes Absolute Auto 3.7 X10*3/uL (1.2-4.9); Lymphocytes Percent Auto 31.8 % (20-40); Mean Corpuscular HGB Conc 33.3 g/dl (31.0-35.0); Mean Corpuscular Hemoglobin 29.6 pg (27.0-33.0); Mean Corpuscular Volume 88.9 fL (80.0-98.0); Monocytes Absolute Auto 0.6 X10*3/uL (0.1-1.2); Neutrophils Absolute Auto 6.8 x10*3/uL (2.0-8.3); Neutrophils Percent Auto 59.3 % (45-73); Platelet Count 319 X10*3/uL (160-400); Red Blood Count 4.77 X10*6/uL (4.20-5.50); Red Cell Distribution Width 13.2 % (11.0-16.0); White Blood Count 11.5 X10*3/uL (4.8-10.8)
[2023-12-27 20:01] LABS: Alanine Aminotransferase 26 U/L (0-31); Albumin Level 4.1 g/dL (3.5-5.0); Alkaline Phosphatase 65 U/L (39-117); Anion Gap 14 (12-20); Aspartate Amino Transferase 20 U/L (5-31); Bilirubin Total 0.2 mg/dL (0.0-1.0); Blood Urea Nitrogen 12 mg/dL (9-16); Calcium 9.4 mg/dL (8.4-10.2); Carbon Dioxide 21 mmol/L (22-29); Chloride 109 mmol/L (96-108); Creatinine Clr Calc Pharmacy 105.3; Estimated Glomerular Filt Rate > 60; Glucose Random 122 mg/dL (60-115); Potassium 3.9 mmol/L (3.3-5.1); Sodium 140 mmol/L (135-145); Total Protein 7.6 g/dL (6.5-8.0)
[2023-12-27 20:08] LABS: Troponin-I High Sensitivity < 2.7 ng/L (<3.5-17.0)
[2023-12-27 20:24] LABS: Influenza A PCR NEGATIVE (Negative); Influenza B PCR NEGATIVE (Negative); Resp Syncy Virus RNA Qual PCR NEGATIVE (Negative); SARS COV2 PCR INHOUSE NEGATIVE (Negative)
[2023-12-27 20:44] VITALS: BP 126/92; PULSE 77; RESP 16; TEMP 36.7; O2SAT 99
[2023-12-27 21:43] VITALS: BP 131/71; PULSE 75; RESP 18; TEMP 37.1; O2SAT 98
[2023-12-27 21:44] VITALS: BP 131/71; PULSE 75; RESP 18; TEMP 37.1; O2SAT 98
== END 2023-12-27 21:45 | disposition home or self-care (01) ==
PROVIDERS: Nurse Practitioner Family; Emergency Provider Internal Medicine; PCP Family Medicine
DX: M94.0 Chondrocostal junction syndrome [Tietze] (principal); Z03.818 Encounter for observation for suspected exposure to other biological agents ruled out; F17.210 Nicotine dependence, cigarettes, uncomplicated
CPT/HCPCS: 0241U; 36415; 80053; 84484; 85025; 93005; 99283; 99284

== ENCOUNTER → 2023-12-27 19:16 | Outpatient (BNV) | payer MEDICAID, SELFPAY | PROVIDERS: Emergency Provider Internal Medicine; PCP Family Medicine; Visit Provider Internal Medicine Cardiovascular Disease | DX: R07.9 Chest pain, unspecified (principal) | CPT/HCPCS: 93010 ==

== ENCOUNTER 2024-03-10 09:43 | Outpatient (REF) | payer MEDICAID, SELFPAY ==
--- OUTSIDE RECORDS SUMMARY | 2024-03-10 10:30 | XMS_ITS | Clinical Summary ---
Author Organization [employer] Address [address] [place] [address] Care Team Providers Care Director Audience Marketing Name Role Phone Rose Walker MD Primary Care Provider [phone] Allergies Active Allergy Reactions Criticality Noted Date Comments Amoxicillin 11/07/2021 Medications * This document contains information received from the source organization and may not represent a complete record from that organization. cholecalciferol (D3 Super Strength) 50 MCG (1999 UT) capsuleIndicati ons:Vitamin D deficiency Take 1 capsule (50 mcg) by mouth in the morning. 90 capsule 023 Active fluticasone (Flonase) 50 MCG/ACT nasal sprayIndication s:Allergic rhinitis, unspecified seasonality, unspecified trigger INSTILL 1-2 SPRAYS IN EACH NOSTRIL ONCE DAILY NEEDED 48 g 023 Active Acetaminophen Extra Strength 500 MG tabletIndicatio ns:History of migraine headaches TAKE 2 TABLETS BY MOUTH EVERY 8 HOURS NEEDED FOR MILD PAIN 30 tablet 3 024 Active Semaglutide-Omeor ght Management 1.7 MG/0.75ML solution auto-injectorIn dications:Obesi ty (BMI 35.0-39.9 without comorbidity) Inject 1.7 mL under the skin every 7 (seven) days. 2 mL 024 Active albuterol (Ventolin HFA) 108 (90 Base) MCG/ACT inhalerIndicati ons:Mild intermittent asthma without complication INHALE 2 PUFFS BY MOUTH EVERY 4 TO 6 HOURS NEEDED 18 g 3 024 Active ondansetron (Zofran) 4 MG tabletIndicatio ns:Nausea TAKE 1 TABLET BY MOUTH EVERY DAY NEEDED FOR NAUSEA AND VOMITING 10 tablet 3 024 Active Vit-Fe Fumarate-FA ( Vitamins) 28-0.8 MG tabletIndicatio ns:Pre-diabetes ,PCOS (polycystic ovarian syndrome) TAKE 1 TABLET BY MOUTH EVERY MORNING 90 tablet 024 Active SUMAtriptan (Imitrex) 50 MG tabletIndicatio ns:History of migraine headaches TAKE 1 TABLET BY MOUTH ONE TIME IF NEEDED FOR MIGRAINE. MAY REPEAT DOSE ONCE IN 2 HOURS IF NO RELIEF. DO NOT EXCEED 2 DOSES IN 24 HOURS. 9 tablet Active Semaglutide-Omero ght Management (Wegovy) 2.4 MG/0.75ML solution auto-injectorIn dications:Class 2 obesity INJECT ONE PEN (=2.4 MG) SUBCUTANEOUSLY ONCE A WEEK 3 mL 025 Active pantoprazole (Protonix) 40 MG EC tabletIndicatio ns:Gastroesopha geal reflux disease, unspecified whether esophagitis present TAKE 1 TABLET BY MOUTH BEFORE BREAKFAST. DO NOT CRUSH, CHEW OR SPLIT. 90 tablet 025 Active pantoprazole (Protonix) 40 MG EC tabletIndicatio ns:Gastroesopha geal reflux disease, unspecified whether esophagitis present Take 1 tablet (40 mg) by mouth before breakfast. Do not crush, chew, or split. 90 tablet 024 2024 Discontinued(R eorder (will not trigger notification to Pharmacy)) Semaglutide-Omero ght Management (Wegovy) 2.4 MG/0.75ML solution auto-injector INJECT ONE PEN (=2.4 MG) SUBCUTANEOUSLY ONCE A WEEK 3 mL 024 2024 Discontinued(R eorder (will not trigger notification to Pharmacy)) Active Problems Problem Noted Date Diagnosed Date Social anxiety in childhood 03/03/2024 Mild intermittent asthma without complication Overview (12/17/2023): Well-controlled with PRN use of albuterol (Ventolin HFA) 108 (90 Base) MCG/ACT inhaler Assessment & Plan (12/18/2023 12:45 PM EDT): Well-controlled with PRN use of albuterol (Ventolin HFA) 108 (90 Base) MCG/ACT inhaler Pap smear for cervical cancer screening 12/17/19 Overview (12/17/2023): 07/18/21 NILM Elevated cholesterol 12/17/2023 Overview (12/18/2023): Lab Results Component Value Date CHOL 215 (H) 09/01/2023 TRIG 152 (H) 09/01/2023 TRIG 115 02/07/2022 HDL 35 (L) 09/01/2023 LDLCHOLCAL 150 (H) 09/01/2023 -continue lifestyle modification -recheck flp Assessment & Plan (12/18/2023 12:44 PM EDT): Lab Results Component Value Date CHOL 215 (H) 09/01/2023 TRIG 152 (H) 09/01/2023 TRIG 115 02/07/2022 HDL 35 (L) 09/01/2023 LDLCHOLCAL 150 (H) 09/01/2023 -continue lifestyle modification -recheck flp Hydradenitis 11/15/2022 Venous stasis 11/15/2022 Overview (11/15/2022): -Compression socks RX givin 08/29/2022 Assessment & Plan (11/15/2022 9:39 AM EDT): -Compression socks RX givin 08/29/2022 Other specified health status 06/27/2022 Overview (12/17/2023): -next comprehensive annual evaluation due after 12/16/2024 -eye care facilitated by [facility] in [place] -dental home is [facility] -[place] care proxy filed 12/17/23 Irregular menses 03/08/2022 Overview (11/15/2022): Likely due to PCOS. -Advised to restart Provera if no menses in 28 days. -Continue Metformin 500mg daily. -TSH, CBC were normal July 2021. Abdominal cramping 02/19/2022 Assessment & Plan (02/19/2022 3:31 PM EST): Urine HCG negative. No evidence of acute abdomin or infection. If no menses 1 months check HCG and restart provera. ER precautions discussed. Class 2 obesity 02/07/2022 Overview (12/18/2023): -Weight 04/28/2023 226 lbs -Started Wegovy 06/18/23. -Increased Wegovy to 0.5 mg on 08/07/23. -Increased Wegovy to 1 mg in August 2023 -Increased Wegovy to 1.7 mg on 11/27/23. -weight 12/17/2023 198 (-28 lbs) Doing excellent with lifestyle changes and medicaion Assessment & Plan (12/18/2023 12:44 PM EDT): -Weight 04/28/2023 226 lbs -Started Wegovy 06/18/23. -Increased Wegovy to 0.5 mg on 08/07/23. -Increased Wegovy to 1 mg in August 2023 -Increased Wegovy to 1.7 mg on 11/27/23. -weight 12/17/2023 198 (-28 lbs) Doing excellent with lifestyle changes and medicaion Assessment & Plan (11/15/2022 9:34 AM EDT): -Weight on 09/03/2022 was 216 lbs, Today weight is 233lbs -S[place] did not get covered Assessment & Plan (02/07/2022 10:38 AM EST): Risks benefits discussed. She would like to try GL{1 inhibitor. Risks and benefits discussed. Advised do not get on med and discontinue if you become . She agrees. Routine screening for STI (sexually transmitted infection) 02/07/2022 Overview (03/08/2022): No need for [place]. 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 -Continue lifestyle modifications - Encourage to take Home BP and let us know if its greater than 140 Assessment & Plan (12/18/2023 12:44 PM EDT): -Blood pressure is at goal without medications. -Continue lifestyle modifications - Encourage to take Home BP and let us know if its greater than 140 Assessment & Plan (11/15/2022 9:36 AM EDT): -Blood pressure is at goal without medications. -Continue lifestyle modifications - Encourage to take Home BP and let us know if its greater than 140 Assessment & Plan (02/07/2022 10:34 AM EST): Not controlled. She will restart hydrochlorothiazide 25mg 02/07/2022. Referral to [facility] 02/07/2022 Renal colic 01/27/2012 Anxiety 01/01/2012 Eczema 01/01/2012 PCOS (polycystic ovarian syndrome) 01/01/2012 Overview (12/17/2023): -Dx based on elevated testosterone in setting of amenorrhea -Advised to restart Provera if no menses in 28 days. -Continue Metformin 500mg daily. -TSH, CBC were normal July 2021. Assessment & Plan (01/31/2022 6:53 PM EST): -Dx based on elevated testosterone in setting of amenorrhea Resolved Problems Problem Noted Date Diagnosed Date Resolved Date Nausea 03/08/2022 11/15/2022 Overview (03/08/2022): - test negative. -Ondansetron given for 2 days. -Rest and fluids. -COVID test at work was negative. Mild asthma with acute exacerbation 03/08/2022 11/15/2022 Overview (03/08/2022): Pt counseled to use rescue inhaler PRN, and initiate use of quadrupled ICS therapy (Flovent) for one week I have encouraged Pt to report any worsening symptoms, SOB, fever, chest pain or tightness or fatigue to clinic or to ED. COVID test deferred given report of recent negative result at home yesterday, Pt counseled to continue social distancing, hand washing, and general hygiene practices. Hypokalemia 03/08/2022 11/15/2022 Overview (03/08/2022): Resolved. Encounters * This document contains information received from the source organization and may not represent a complete record from that organization. Date Type Department Care Team Description 02/24/[address] [facility] [address] [place] [phone] Rose Walker MD Gastroesophageal reflux disease, unspecified whether esophagitis present 02/24/[address] [facility] [address] [place] [phone] Rose Walker MD Class 2 obesity (Primary Dx); Gastroesophageal reflux disease, unspecified whether esophagitis present 02/05/2024 Travel 01/26/[address] [facility] [address] [place] [phone] Rose Walker MD History of migraine headaches; Gastroesophageal reflux disease, unspecified whether esophagitis present; Nausea; Pre-diabetes; PCOS (polycystic ovarian syndrome) 01/05/[address] [facility] [address] [place] [address] Rose Walker MD Nurse Triage 12/28/[address] [facility] [address], [place] [phone] Rose Walker MD Obesity (BMI 35.0-39.9 without comorbidity) 12/27/2023 Orders Only GENERIC EXTERNAL DATA DEPARTMENT Provider, Generic External Data 12/17/2023 3:30 PM EDT Office Visit [facility] [address] [place] [address] Rose Walker MD Primary hypertension (Primary Dx); Pre-diabetes; Elevated cholesterol; Mild intermittent asthma without complication; PCOS (polycystic ovarian syndrome); Tobacco dependence with current use; Class 2 obesity; Dietary counseling; Exercise counseling; Other specified health status; Encounter for immunization; Routine screening for STI (sexually transmitted infection); Mood disorder ([facility]) 12/17/2023 Travel 12/17/[address] [facility] [address] [place] [address] Rose Walker MD Pre-diabetes; PCOS (polycystic ovarian syndrome); Mild intermittent asthma without complication; Nausea; Obesity (BMI 35.0-39.9 without comorbidity) 12/16/2023 Travel from Last 3 Months Immunizations Name Administration Dates Next Due DTaP 11/30/2012, 7,12/07/1998,10/13,01/14/1995,1994,1994 HPV, Quadrivalent 10/10/2006,06/16/2006,04/11/19 07 Hep A, Adult 12/17/2023,11/15/2022 Hep B, Adolescent or Pediatric 6,01/14/1995,1994,06/26 Hib (HbOC) 10/14/1995, 5,1994,09/02 IPV 12/07/1998, 5,1994,09/02 Influenza Injectable Quadriv alant Preservative Free IIV4 MDCK 10/27/2019 Influenza Quadrivalent Adjuvanted 11/12/2021, Influenza injectable quadriv alent IIV4 with preservative 10/28/2018,11/07/2014 Influenza injectable quadriv alent preservative free 11/15/2022,11/28/2016 Influenza, IIV3, injectable 12/02/2023 Influenza, Split (incl. nito fied surface antigen) 01/01/2012 Influenza, seasonal, injecta ble, preservative free 03/01/2014 MMR 12/07/1998,07/22/1995 Meningococcal MCV4P ACYW-135 04/11/2006 Moderna Covid-19 Vaccine 12+ 03/31/2020, 03/31/2020,03/02/2020,03/02 Pneumococcal Conjugate PCV 20 11/15/2022 Pneumococcal Polysaccharide PPSV23 03/02/2014 Tdap 12/17/2023,01/01/2012 Varicella 01/01/2012,06/28/1996 Family History Medical History Relation Name Comments Diabetes type II Father dyslipidemia Father Depression Mother Hypertension Mother Relation Name Status Comments Father Mother Social History Tobacco Use Types Packs/Day Years Used Date Smoking Tobacco: Every Day Cigarettes Smokeless Tobacco: Never Tobacco Cessation:Ready to Q uit: Not Asked; Counseling Given: Not Answered Alcohol Use Standard Drinks/Week Comments Not Currently 0 (1 standard drink = 0.6 oz pur e alcohol) Depression Answer Date Recorded Patient Health Questionnaire-9 Score 5 12/17/2023 Patient Health Questionnaire-9 Score 5 12/17/2023 Last PHQ-9: Questionnaire Data Not on file 1 Housing Stability Answer Date Recorded What is your housing situation today? I have kady herzog 12/17/[address] you li ve. Do you have problems with any of the following? None of the above 12/17/2023 Food Insecurity Answer Date Recorded Within the past 12 months, y ou worried that your food would run out before you got money to buy more: Never True 12/17/2023 Within the past 12 months,th e food you bought just didn't last and you didn't have enough money to get more: Never True Transportation Answer Date Recorded In the past 12 months, has l ack of transportation kept you from medical appts, meetings, work or from getting things needed for daily living? No 12/17/2023 Utilities Answer Date Recorded In the past 12 months, has t he electric, gas, oil or water company threatened to shut off services in your home? No 12/17/2023 Depression Answer Date Recorded Patient Health Questionnaire-2 Score 2 12/17/2023 Internet Access Answer Date Recorded Internet Access Q1 Yes 12/17/2023 Internet Access Q2 Not on file 12/17/2023 Comments Unknown Sex and Gender Information Value Date Recorded Sex Assigned at Female 12/17/2021 10:15 AM EDT Legal Sex Female 10:15 AM EDT Gender Identity Female 12/17/2021 10:15 AM EDT Sexual Orientation Don't know 12/17/2021 10 :15 AM EDT Last Filed Vital Signs Vital Sign Reading Time Taken Comments Blood Pressure 137/81 12/17/2023 3:44 PM EDT Pulse 90 12/17/2023 3:44 PM EDT Temperature 36.2 ??C (97.1 ??F) 12/17/2023 3:44 PM ED T Respiratory Rate 17 12/17/2023 3:44 PM EDT Oxygen Saturation 95% 12/17/2023 3:44 PM EDT Inhaled Oxygen Concentration - - Weight 89.9 kg (198 lb 3.2 oz) 12/17/2023 3:44 P M EDT Height 154.9 cm (5' 1 ) 12/17/2023 3:44 PM EDT Body Mass Index 37.45 12/17/2023 3:44 PM EDT Plan of Treatment Health Maintenance Due Date Last Done Comments Dental Oral Exam 1994 Dental Prophylaxis 1994 Dental X-Ray: Bitewings 1994 Dental X-Ray: Full Mouth 12/06/2022 12/06/2019 Pap Smear 07/18/2024 07/18/2021, 07/18/2021 Diabetes: Hemoglobin A1C 08/31/2024 024, 11/15/2022, 02/07/2022, Additional history exists Alcohol/Substance Use Screening 12/16/2024 12/17/2023 COVID-19 Vaccine ( season) 2024 04/16/2021, 03/31/2020, 03/31/2020, Additional history exists Postponed from 10/19/2023 (Patient Refused) Depression Screening 12/16/2024 12/17/2023, 12/17/19 Family Planning (PISQ) 12/16/2024 12/17/2023 SDOH Screening 12/16/2024 12/17/2023 Tobacco Screening 12/16/2024 12/17/2023 Lipid Panel 08/31/2028 09/01/2023, 10/19, 02/07/2022, Additional history exists DTaP/Tdap/Td Vaccines (10 - Td or Tdap) 12/16/2033 12/17/2023, 11/30/2012, 01/01/2012, Additional history exists Zoster Vaccines (1 of 2) 2044 RSV Patients and Patients Aged 60 years or older (1 - 1-dose 75+ series) 2069 HIB Vaccines Completed 10/14/1995, 12/19, 1994, Additional history exists IPV Vaccines Completed 12/07/1998, 12/19, 1994, Additional history exists Meningococcal Vaccine Aged Out 04/11/2006 No dior luther eligible based on patient's age to complete this topic HPV Vaccines Completed 10/10/2006, 05/20, 04/11/2006 Hepatitis B Vaccines Completed 09/12/2015, 01/14/1995, 1994, Additional history exists HIV Screening Completed 11/15/2022, 01/18, 07/18/2021, Additional history exists Hepatitis C Screening Completed 11/15/2022 , 02/07/2022, 07/03/2020, Additional history exists Pneumococcal Vaccine: Pediatrics (0 to 5 Years) and At-Risk Patients (6 to 64 Years) Completed 11/15/2022, 03/02/2014 Influenza Vaccine Completed 12/02/2023, , 11/12/2021, Additional history exists Hepatitis A Vaccines Completed 12/17/2023, 11/16/19 23 RSV under 20 months Aged Out No longe r eligible based on patient's age to complete this topic Rotavirus Vaccines Aged Out No longer eligible based on patient's age to complete this topic Goals Goal Patient Goal Type Associated Problems Recent Progress Patient-Stated? Author Smoking cessation General No Lucie Oconnell PharmD Procedures Procedure Name Priority Date/Time Associated Diagnosis Comments SARS COV2/INFLUENZA A/B AND RSV RNA QL NAAT Routine 12/27/2023 7:41 PM EST HIGH SENSITIVITY TROPONIN I Routine 12/27/2023 7:39 PM EST COMPREHENSIVE METABOLIC PANEL Routine 12/27/2023 7:39 PM EST CBC WITH AUTO DIFFERENTIAL Routine 12/27/2023 7:39 PM EST HEMOGLOBIN A1C Routine 09/01/2023 9:56 AM EDT Epigastric pain LIPID PANEL, STANDARD Routine 09/01/2023 9:56 AM EDT Epigastric pain HEPATITIS C ANTIBODY Routine 11/15/2022 10:01 AM EDT Routine screening for STI (sexually transmitted infection) HIV ANTIBODY/ANTIGEN ([facility]) Routine 11/15/2022 10:01 AM EDT PAP SMEAR Routine 07/18/2021 12:00 AM EDT PANORAMIC RADIOGRAPHIC IMAGE Routine 12/06/2019 12:00 AM EDT from Last 3 Months or Most Recently Relevant to Health Maintenance Results * SARS-CoV-2 RNA, Influenza A/B, and RSV RNA, Ql NAAT (12/27/2023 7:41 PM EST) Influenza A PCR NEGATIVE Negative [facility] Influenza B PCR NEGATIVE Negative [facility] Resp Syncy Virus RNA Qual PCR NEGATIVE Negative [facility] SARS COV2 PCR NEGATIVE Negative [facility] Comment:All test results mus t be correlated with clinical findings.Negative results do not preclude SARS-CoV2, influenza Avirus, influenza B virus and/or RSV infectionand should not be used as the sole basis for treatment orother patient management decisions. Negative results must becombined with clinical observations, patient history, andepidemiological information.This test has not been evaluated for monitoring treatment ofinfection.This test has been authorized by the FDA under an EmergencyUse Authorization (EUA) for use by authorized laboratories.Testing performed on the [employer] GeneXpert utilizingreal-time RT-PCR.All SARS CoV2 and positive influenza A/B results arereported to [facility]. 12/27/2023 7:41 PM EST 12/27/2023 7:44 PM EST Generic External Data Provider LAB MICROBIOLOGY - GENERAL ORDERABLES Final Result Performing Organization Address [facility]/ZIP Co de Phone Number [facility] [address] [place] [phone] * High Sensitivity Troponin I (12/27/2023 7:39 PM EST) Pathologist [facility] TROPONIN I HIGH SENSITIVITY <2.7 <3.5 - 17.0 ng/L [facility] Comment:The [place] high sens itivity Troponin-I results should beused in conjunction with other diagnostic information suchas ECG, clinical observations and information, and patientsymptoms to aid in the diagnosis of [place]. 12/27/2023 7:39 PM EST 12/27/2023 7:44 PM EST Generic External Data Provider LAB BLOOD ORDERAB LES Final Result Performing Organization Address [facility]/ZIP Co de Phone Number [facility] [address] [place] [phone] * (ABNORMAL) CBC auto differential (12/27/2023 7:39 PM EST) White Blood Count 11.5(H) 4.8 - 10.8 X10*3/uL [facility] Red Blood Count 4.77 4.20 - 5.50 X10*6/uL [facility] Hemoglobin 14.1 12.0 - 16.0 g/dl [facility] Hematocrit 42.4 37.0 - 47.0 % [facility] Mean Corpuscular Volume 88.9 80.0 - 98.0 fL [facility] Mean Corpuscular Hemoglobin 29.6 27.0 - 33.0 pg [facility] Mean Corpuscular HGB Conc 33.3 31.0 - 35.0 g/dl [facility] Red Cell Distribution Width 13.2 11.0 - 16.0 % [facility] Platelet Count 319 160 - 400 X10*3/uL [facility] Mean Platelet Volume 11.0 9.4 - 12.3 fL [facility] Neutrophils Percent Auto 59.3 45 - 73 % [facility] Imm Gran Pct Auto 0.3 0.0 - 0.4 % [facility] Lymphocytes Percent Auto 31.8 20 - 40 % [facility] Monocytes Percent Auto 5.0 2 - 11 % [facility] Eosinophils Percent Auto 2.8 0 - 4 % [facility] Basophils Percent Auto 0.8 0 - 2 % [facility] NRBC Pct Auto 0.0 0.0 - 0.2 /100WBC [facility] Neutrophils Absolute Auto 6.8 2.0 - 8.3 x10*3/uL [facility] Imm Gran Abs Auto 0.03 0.00 - 0.03 X10*3/uL [facility] Lymphocytes Absolute Auto 3.7 1.2 - 4.9 X10*3/uL [facility] Monocytes Absolute Auto 0.6 0.1 - 1.2 X10*3/uL [facility] Eosinophils Absolute Auto 0.3 0.0 - 0.4 X10*3/uL [facility] Basophils Absolute Auto 0.1 0.0 - 0.2 X10*3/uL [facility] NRBC Abs Auto 0.000 0.0 - 0.012 X10*3/uL [facility] 12/27/2023 7:39 PM EST 12/27/2023 7:44 PM EST us Generic External Data Provider LAB BLOOD ORDERAB LES Final Result [facility] [address] [place] [phone] * (ABNORMAL) Comprehensive Metabolic Panel (12/27/2023 7:39 PM EST) Sodium 140 135 - 145 mmol/L [facility] Potassium 3.9 3.3 - 5.1 mmol/L [facility] Chloride 109(H) 96 - 108 mmol/L [facility] Carbon Dioxide 21(L) 22 - 29 mmol/L [facility] Anion Gap 14 12 - 20 [facility] Urea Nitrogen (BUN) 12 9 - 16 mg/dL [facility] Creatinine, Serum 0.80 0.5 - 1.4 mg/dL [facility] Creatinine Clr Calc Pharmacy 105.3 [facility] Comment:Provided height and weight: 154.94 cm,89.1 kg.eGFR (calculated from the MDRD study equation) and eCrCl(calculated from the Cockcroft-Gault equation) are based ondifferent parameters and may not yield comparable results.If eCrCl result is absurd, please check patient'sheight/weight. Estimated Glomerular Filt Rate >60 [facility] Comment:NOTE: For -Am erican individuals, multiply the result by 1.210.Chronic Kidney Disease: Estimated GFR < 60 mL/min/1.33i5Zhrkym Kidney Disease: Estimated GFR < 15 mL/min/1.73m2 Glucose 122(H) 60 - 115 mg/dL [facility] Calcium 9.4 8.4 - 10.2 mg/dL [facility] Bilirubin, Total 0.2 0.0 - 1.0 mg/dL [facility] Aspartate Amino Transferase 20 5 - 31 U/L [facility] Alanine Aminotransferase 26 0 - 31 U/L [facility] Total Protein 7.6 6.5 - 8.0 g/dL [facility] Albumin Level 4.1 3.5 - 5.0 g/dL [facility] Alkaline Phosphatase 65 39 - 117 U/L [facility] 12/27/2023 7:39 PM EST 12/27/2023 7:44 PM EST us Generic External Data Provider LAB BLOOD ORDERAB LES Final Result Performing Organization Address [facility]/ZIP Co de Phone Number [facility] [address] [place] [phone] * Hemoglobin A1c (09/01/2023 9:56 AM EDT) Hemoglobin A1c 5.8 <6.0 % [facility] Comment:Hemoglobin A1C Refer ence Range Adults: 4.8 - 6.0 % Non diabetic: < 6.0 % Goal: < 7.0 %Additional Action Suggested: > 8.0 %Note: Hemoglobin A1c results are invalid for patients with abnormal amounts of HbF. Blood transfusions may impact the HbA1c concentration in the patient sample. Estimated Average Glucose 120 mg/dL [facility] Comment:eAG = Estimated ave rage glucose which is %A1C expressed asaverage glucose, using the formula of the K0I-YbyldokKvwfvif Glucose study (ADAG), Diabetes Care, Vol.31,#8,Sep. 2007 Blood Venous blood specimen / Unknown 09/01/2023 9:56 AM EDT 09/01/2023 11:04 AM EDT us Melissa Han DO LAB BLOOD ORDERABLES Final R esult Performing Organization Address [facility]/ZIP Co de Phone Number [facility] [address] [place] [phone] * (ABNORMAL) Lipid Panel, Standard (09/01/2023 9:56 AM EDT) Triglycerides 152(H) <150 mg/dL [facility] Comment:Desirable Triglyceri de: less than 150 mg/dLBorderline High Triglyceride 150-199 mg/dLHigh Triglyceride: 200-499 mg/dLVery High Triglyceride: greater than or equal to 5OO mg/dL Cholesterol 215(H) <200 mg/dL [facility] Comment:Desirable Cholestero l: less than 200 mg/dLBorderline High Cholesterol: 200-239 mg/dLHigh Cholesterol: greater than 239 mg/dL LDL Cholesterol Calculated 150(H) <100 mg/dL [facility] Comment:Desirable LDL: less than 100 mg/dLNear Optimal/Above Optimal LDL: 110- 129 mg/dLBorderline High LDL: 130-159 mg/dLHigh LDL: 160-189 mg/dLVery High LDL: greater than or equal to 190 mg/dL HDL Cholesterol 35(L) >40 mg/dL [facility] Comment:Desirable HDL: great er than 40 mg/dL Note: This HDL assay may give artificially low results in patients with liver disease. Blood Venous blood specimen / Unknown 09/01/2023 9:56 AM EDT 09/01/2023 11:04 AM EDT us Melissa Han DO LAB BLOOD ORDERABLES Final R esult Performing Organization Address [facility] Co de Phone Number [facility] [address] [place] [phone] * Hepatitis C Ab (11/15/2022 10:01 AM EDT) Hepatitis C Antibody Nonreactive Nonreactive [facility] Comment:Antibodies to HCV no t detected; does not exclude early acuteHCV infection. Blood 11/15/2022 10:0 1 AM EDT 11/15/2022 11:10 AM EDT us Rose Walker MD LAB BLOOD ORDERABLES Final Result [facility] [address] [place] [address] [phone] * HIV Ab/Ag (NOHEMI BYRD) (11/15/2022 10:01 AM EDT) HIV AB/AG Nonreactive Nonreactive [facility] Comment:HIV-1 p24 Ag and/or HIV-1/HIV-2 Ab not detected.A test result that is nonreactive does not exclude thepossibility of exposure to or infection with HIV-1 and/orHIV-2. Nonreactive results in this assay for individualswith prior exposure to HIV-1 and/or HIV-2 may be due toantigen and antibody levels that are below the limit ofdetection of this assay.The [employer] HIV Ag/Ab Combo assay result andsupplemental assay results should be interpreted inconjunction with the patient's clinical presentation,history and other laboratory results. If the results areinconsistent with clinical evidence, additional testing issuggested to confirm the result. 11/15/2022 10:0 1 AM EDT 11/15/2022 11:10 AM EDT Rose Walker MD LAB BLOOD ORDERABLES Final Result Performing Organization Address [facility] Co de Phone Number [facility] [address] [place] [address] [phone] * Pap Smear (07/18/2021 12:00 AM EDT) Swab Tania Provider LAB CYTOLOGY ORDERABLES F inal Result Performing Organization Address [facility]/ZIP Co de Phone Number [address], [place] [address] from Last 3 Months or Most Recently Relevant to Health Maintenance Insurance [facility] C3 DENTAL-[facility] MEDICAID STAND ADULT Advance Directives Documents on File Type Date Recorded Patient Business Area Manager Expl anation Advance Directives and Living Will 12/18/2023 1:57 PM Health Care Proxy Care Teams Director Audience Marketing Relationship Specialty Start Date End Date [place], MD Rose [address] [place] [id number] PCP - General Family Medicine 02/17/18
--- OUTSIDE RECORDS SUMMARY | 2024-03-10 10:30 | XMS_ITS | Encounter Summary ---
Author Organization [employer] Address [address] [facility] 7t [place] [address] Care Team Providers Care Wall Scraper Name Role Phone Rose Walker MD Primary Care Provider +1- [phone] Reason for Visit * Reason Onset Date Comments Med Refill 08/02/2023 Encounter Details Date Type Department Care Team (Late st Contact Info) Description 08/02/2023 Refill [facility] MEDICINE [address] [place] [address] Rose Walker MD [address] [place] [address] Social History Tobacco Use Types Packs/Day Years Used Date Smoking Tobacco: Every Day Cigarettes Smokeless Tobacco: Never Alcohol Use Standard Drinks/Week Comments Not Currently 0 (1 standard drink = 0.6 oz pur e alcohol) Housing Stability Answer Date Recorded What is your housing situation today? I have housing today, but I am worried about losing housing in the future 12/02/[address] you li ve. Do you have problems with any of the following? None of the above 12/02/2022 Food Insecurity Answer Date Recorded Within the past 12 months, y ou worried that your food would run out before you got money to buy more: Never True 12/02/2022 Within the past 12 months,th e food you bought just didn't last and you didn't have enough money to get more: Never True Transportation Answer Date Recorded In the past 12 months, has l ack of transportation kept you from medical appts, meetings, work or from getting things needed for daily living? No 12/02/2022 Utilities Answer Date Recorded In the past 12 months, has t he electric, gas, oil or water [employer] threatened to shut off services in your home? No 12/02/2022 Depression Answer Date Recorded Patient Health Questionnaire-2 Score 0 02/07/2022 Comments Unknown Sex and Gender Information Value Date Recorded Sex Assigned at Female 12/17/2021 10:15 AM EDT Legal Sex Female 10:15 AM EDT Gender Identity Female 12/17/2021 10:15 AM EDT Sexual Orientation Don't know 12/17/2021 10 :15 AM EDT documented as of this encounter Plan of Treatment Not on file documented as of this encounter Goals Goal Patient Goal Type Associated Problems Recent Progress Patient-Stated? Author Smoking cessation General No Lucie Oconnell, PharmD documented as of this encounter Visit Diagnoses Not on filedocumented in this encounter Care Teams Wall Scraper Relationship Specialty Start Date End Date Rose Walker MD [address] [place] [phone] PCP - General Family Medicine 02/17/18 documented as of this encounter
--- OUTSIDE RECORDS SUMMARY | 2024-03-10 10:30 | XMS_ITS | Encounter Summary ---
Author Organization [employer] Address [address] [facility] 7t [place] [address] Care Team Providers Care String Studies Director Name Role Phone Rose Walker MD Primary Care Provider +1- [phone] Reason for Visit * Reason Onset Date Comments Med Refill 02/24/2024 Encounter Details Date Type Department Care Team (Late st Contact Info) Description 02/24/2024 Refill [facility] MEDICINE [address] [place] [address] Rose Walker MD [address] [place] [address] Gastroesophageal reflux disease, unspecified whether esophagitis present Social History Tobacco Use Types Packs/Day Years [...] is your housing situation today? I have kadyracquel herzog 12/17/[address] you [...] documented as of this encounter Visit Diagnoses Diagnosis Gastroesophageal reflux disease, unspecified whether esophagitis present documented in this encounter Additional Health Concerns Assessment Noted Time PHQ-9 Depression Total Score: 5 12/17/19 24 4:06 PM EDT documented as of this encounter Care Teams String Studies Director Relationship Specialty Start Date End Date Rose Walker MD [address] [place] [address] PCP - General Family Medicine 02/17/18 documented as of this encounter
--- OUTSIDE RECORDS SUMMARY | 2024-03-10 10:30 | XMS_ITS | Encounter Summary ---
Author Organization [employer] Address [address] [facility] 7t [place] [address] Care Team Providers Care Horticultural Therapist Name Role Phone Rose Walker MD Primary Care Provider +1- [phone] Reason for Visit * Reason Onset Date Comments Med Refill 10/25/2023 Encounter Details Date Type Department Care Team (Late st Contact Info) Description 10/25/2023 Refill [facility] MEDICINE [address] [place] [address] Rose Walker MD [address] [place] [address] Obesity (BMI 35.0-39.9 without comorbidity) Social History Tobacco Use Types Packs/Day Years [...] as of this encounter Visit Diagnoses Diagnosis Obesity (BMI 35.0-39.9 without comorbidity) documented in this encounter Care Teams Horticultural Therapist Relationship Specialty Start Date End Date Rose Walker MD [address] [place] [phone] PCP - General Family Medicine 02/17/18 documented as of this encounter
--- OUTSIDE RECORDS SUMMARY | 2024-03-10 10:30 | XMS_ITS | Encounter Summary ---
Author Organization [employer] Address [address] [facility] 7t [place] [address] Care Team Providers Care Hatchery Attendant Name Role Phone Roes Walker MD Primary Care Provider +1- [phone] Reason for Visit * Reason Onset Date Comments Med Refill 10/09/2023 Encounter Details Date Type Department Care Team (Late st Contact Info) Description 10/09/2023 Refill [facility] MEDICINE [address] [place] [address] Melissa Han DO [address] [place] [address] Social History Tobacco Use Types Packs/Day Years [...] on filedocumented in this encounter Care Teams Hatchery Attendant Relationship Specialty Start Date End Date Rose Walker MD [address] [place] [address] PCP - General Family Medicine 02/17/18 documented as of this encounter
--- OUTSIDE RECORDS SUMMARY | 2024-03-10 10:30 | XMS_ITS | Encounter Summary ---
Author Organization [employer] Address [address] [facility] 7t [place] [address] Care Team Providers Care Scientific Artist Name Role Phone Rose Walker MD Primary Care Provider + [phone] Lucie Benjamin PharmD Unavailable +1- [phone] Reason for Visit * Reason Comments Med Refill Encounter Details Date Type Department Care Team ([facility] st Contact Info) Description 07/22/2022 Refill [facility] [address] [place] [address] Mayur Vigil MD [address] [place] [address] Social History Tobacco Use Types Packs/Day Years Used Date Smoking Tobacco: Every Day Cigarettes Smokeless Tobacco: Never Alcohol Use Standard Drinks/Week Comments Yes 0 (1 standard drink = 0.6 oz pur e alcohol) Depression Answer Date Recorded Patient Health Questionnaire-2 [...] on filedocumented in this encounter Care Teams Scientific Artist Relationship Specialty Start Date End Date Rose Walker MD [address] [place] [address] PCP - General Family Medicine 02/17/18 Lucie Benjamin, CodyD [address] [place] [address] Pharmacist Internal Medicine 06/11/22 12/16/22 documented as of this encounter
--- OUTSIDE RECORDS SUMMARY | 2024-03-10 10:30 | XMS_ITS | Encounter Summary ---
Author Organization [employer] Address [address] [facility] 7t [place] [address] Care Team Providers Care Regional Dedicated Truck Driver Name Role Phone Rose Walker MD Primary Care Provider +1- [phone] Reason for Visit * Reason Onset Date Comments Med Refill 02/24/2024 Encounter Details Date Type Department Care Team (Late st Contact Info) Description 02/24/2024 Refill [facility] MEDICINE [address] [place] [address] Rose Walker MD [address] [place] [address] Class 2 obesity (Primary Dx); Gastroesophageal reflux [...] as of this encounter Visit Diagnoses Diagnosis Class 2 obesity- Primary Gastroesophageal reflux disease, unspecified whether esophagitis present documented in this encounter Additional Health Concerns Assessment Noted Time PHQ-9 Depression Total Score: 5 12/17/19 24 4:06 PM EDT documented as of this encounter Care Teams Regional Dedicated Truck Driver Relationship Specialty Start Date End Date Rose Walker MD [address] [place] [address] PCP - General Family Medicine 02/17/18 documented as of this encounter
--- OUTSIDE RECORDS SUMMARY | 2024-03-10 10:30 | XMS_ITS | Encounter Summary ---
Author Organization [employer] Address [address] [facility] 7t [place] [address] Care Team Providers Care Electrolysis Operator Name Role Phone Rose Walker MD Primary Care Provider +1- [phone] Reason for Visit * Reason Onset Date Comments Nurse Triage 01/05/2024 Encounter Details Date Type Department Care Team ([facility] st Contact Info) Description 01/05/2024 Telephone [facility] MEDICINE [address] [place] [address] Rose Walker MD [address] [place] [address] Nurse Triage Social History Tobacco Use Types Packs/Day Years [...] AM EDT documented as of this encounter Miscellaneous Notes * Telephone Encounter - Kathi Aviles RN - 01/06/2024 9:10 AM EST Called pt. To follow up on vaginal bleeding and possible mock tissue passing from yesterday 01/05/24 at Pt went to [facility]. No answer. Left message for pt. To call back [facility] michel ricketts at [phone] if she needs to schedule an appt. With PCP. Will send note to clinical Coordinators to have [facility] note scanned into pt. Chart. * Telephone Encounter - Kathi Aviles RN - 01/05/2024 3:41 PM EST Called pt. She states that last night randomly pt. Kunia like she urinated on her self. When she looked ,she saw a pinkish discharge with liquid, then an hour later pt. Got cramping in her pelvic areaand blood. This am when pt. Went to the bathroom she was still cramping in abdomen and when she saton toilet there was a large clot with whitish mock matter surrounded by blood vessels on her pad that was also soaked with bright red blood. Pt cannot remember her last menses because she states I am very irregular but I know I did not get my menses last month. Pt has been trying to conceive. Pt also states that she is currently on Wegovy and is concerned that it is not safe to take if she was . Pt. Has been on Wegovy since I see an approval in chart from 06/18/2023. Pt. Still has significant cramping now 8/10 pain and has been still hving some scant blood in her panty liner. Advised pt. To go to ED for possible Miscarriage and to have blood work and testing done at ED to confirm. Ptis in agreement of plan and will go to [facility] now. Pt. Will need fu with provider to discuss Wegovyuse if trying to conceive. Protocol Used: Vaginal Bleeding - Abnormal (Adult) Protocol-Based Disposition: Go to ED Now Positive Triage Questions: * Severe abdominal pain (e.g., excruciating) * Moderate vaginal bleeding (i.e., soaking pad or tampon per hour and present > 6 hours; 1 menstrual cup every 6 hours) * Passed tissue (e.g., earl-white) * All higher-acuity triage questions were negative Care Advice Discussed: * Test, When in Doubt * Iron and Anemia * Telephone Encounter - Alan Hill - 01/05/2024 3:40 PM EST Symptom: Vaginal Bleeding Outcome: Talk to a nurse or provider within 15 minutes Reason: Heavy bleeding and pelvic pain The caller accepted this outcome. Please contact at [phone] documented in this encounter Plan of Treatment Not on file documented as of this encounter Goals Goal Patient Goal Type Associated Problems Recent Progress Patient-Stated? Author Smoking cessation General No Lucie Oconnell, PharmD documented as of this encounter Visit Diagnoses Not on filedocumented in this encounter Additional Health Concerns Assessment Noted Time PHQ-9 Depression Total Score: 5 12/17/19 24 4:06 PM EDT documented as of this encounter Care Teams Electrolysis Operator Relationship Specialty Start Date End Date Rose Walker MD [address] [place] [id number] PCP - General Family Medicine 02/17/18 documented as of this encounter
--- OUTSIDE RECORDS SUMMARY | 2024-03-10 10:30 | XMS_ITS | Encounter Summary ---
Author Organization [employer] Address [address] [facility] 7t [place] [address] Care Team Providers Care Movie Shot Cameraman Name Role Phone Rose Walker MD Primary Care Provider +1- [phone] Reason for Visit * Reason Onset Date Comments Med Refill 08/24/2023 Encounter Details Date Type Department Care Team (Late st Contact Info) Description 08/24/2023 Refill [facility] MEDICINE [address] [place] [address] Sophia Glover MD [address] [place] [address] Social History Tobacco Use Types Packs/Day Years [...] t he electric, gas, oil or water [employer] threatened to shut off services in your [...] on filedocumented in this encounter Care Teams Movie Shot Cameraman Relationship Specialty Start Date End Date Rose Walker MD [address] [place] [phone] PCP - General Family Medicine 02/17/18 documented as of this encounter
--- OUTSIDE RECORDS SUMMARY | 2024-03-10 10:30 | XMS_ITS | Encounter Summary ---
Author Organization [employer] Address [address] [place] [address] 7t [place] [address] Care Team Providers Care Fingerer Name Role Phone Rose Walker MD Primary Care Provider + [phone] Lucie Benjamin PharmD Unavailable +1- [phone] Encounter Details Date Type Department Care Team (Late st Contact Info) Description 04/16/2022 Orders Only [facility] MEDICINE [address] [place] [address] Rose Walker MD [address] [place] [address] [phone] Insulin resistance (Primary Dx); Pre-diabetes Social History Tobacco Use Types Packs/Day Years [...] on file documented as of this encounter Visit Diagnoses Diagnosis Insulin resistance- Primary Other abnormal glucose Pre-diabetes Other abnormal glucose documented in this encounter Care Teams Fingerer Relationship Specialty Start Date End Date Rose Walker MD [address] [place] [address] [phone] PCP - General Family Medicine 1/1/19 Lucie Benjamin, Niki [address] [place] [address] Pharmacist Internal Medicine 06/11/22 12/16/22 documented as of this encounter
--- OUTSIDE RECORDS SUMMARY | 2024-03-10 10:30 | XMS_ITS | Encounter Summary ---
Author Organization [employer] Address [address] [facility] [address] 7t [place] [address] Care Team Providers Care Chief Estimator Name Role Phone Rose Walker MD Primary Care Provider +1- [phone] Encounter Details Date Type Department Care Team ([facility] st Contact Info) Description 08/08/2023 Orders Only [facility] MEDICINE [address] [place] [address] Sophia Glover MD [address] [place] [address] Social History Tobacco Use Types Packs/Day Years [...] on filedocumented in this encounter Care Teams Chief Estimator Relationship Specialty Start Date End Date Rose Walker MD [address] [place] [phone] PCP - General Family Medicine 02/17/18 documented as of this encounter
--- OUTSIDE RECORDS SUMMARY | 2024-03-10 10:30 | XMS_ITS | Encounter Summary ---
Author Organization [employer] Address [address] [facility] [address]t [place] [address] Care Team Providers Care Clam Shucking Machine Tender Name Role Phone Rose Walker MD Primary Care Provider +1- [phone] Encounter Details Date Type Department Care Team (Late st Contact Info) Description 08/24/2023 Orders Only [facility] MEDICINE [address] [place] [address] Rose Walker MD [address] [place] [address] Obesity (BMI 35.0-39.9 without comorbidity) (Primary Dx) Social History Tobacco Use Types Packs/Day Years [...] t he electric, gas, oil or water [employer] threatened to shut off services in your [...] Visit Diagnoses Diagnosis Obesity (BMI 35.0-39.9 without comorbidity)- Primary documented in this encounter Care Teams Clam Shucking Machine Tender Relationship Specialty Start Date End Date Rose Walker MD [address] [place] [phone] PCP - General Family Medicine 02/17/18 documented as of this encounter
[2024-03-10 12:20] LABS: Estimated Average Glucose 111 mg/dL; Hemoglobin A1C 138.6717 umol/L; Hemoglobin A1c % 5.5 % (<6.0); Total Hemoglobin (HGBA1C) 3762.7689 umol/L
[2024-03-10 12:23] LABS: Amphetamine Screen Urine Not Detected (Not Detect); Barbiturates, Urine Not Detected (Not Detect); Benzodiazepines Screen Urine Not Detected (Not Detect); Buprenorphine Scr Not Detected (Not Detect); Cannabinoid Screen Urine Not Detected (Not Detect); Cocaine Screen Urine Not Detected (Not Detect); Fentanyl, urine Not Detected (Not Detect); Methadone Screen, Urine Not Detected (Not Detect); Opiate Screen Urine Not Detected (Not Detect); Oxycodone Screen Urine Not Detected (Not Detect); Phencyclidine Screen Urine Not Detected (Not Detect)
[2024-03-10 12:27] LABS: Alanine Aminotransferase 25 U/L (0-31); Albumin Level 4.3 g/dL (3.5-5.0); Alkaline Phosphatase 74 U/L (39-117); Anion Gap 9 (12-20); Aspartate Amino Transferase 27 U/L (5-31); Bilirubin Direct 0.2 mg/dL (0.0-0.5); Bilirubin Total 0.5 mg/dL (0.0-1.0); Blood Urea Nitrogen 12 mg/dL (9-16); Calcium 9.9 mg/dL (8.4-10.2); Carbon Dioxide 27 mmol/L (22-29); Chloride 107 mmol/L (96-108); Cholesterol 213 mg/dL (<200); Estimated Glomerular Filt Rate > 60; Glucose Random 88 mg/dL (60-115); HDL Cholesterol 49 mg/dL (>40); LDL Cholesterol Calculated 143 mg/dL (<100); Potassium 4.3 mmol/L (3.3-5.1); Sodium 139 mmol/L (135-145); Total Protein 8.4 g/dL (6.5-8.0); Triglycerides 105 mg/dL (<150)
[2024-03-10 12:41] LABS: Creatinine Urine 243.61 mg/dL; Microalbum/Creatinine Ratio Ur 3.6 ug/mg cr (<30)
[2024-03-10 13:04] LABS: HIV AB/AG Nonreactive (Nonreactive); HIV Num 1 0.05 S/CO (0.00-0.99); ~HepC Num1 0.26 S/CO (0.00-0.79); ~Hepatitis C Antibody Nonreactive (Nonreactive)
[2024-03-10 14:46] LABS: CT PCR NOT DETECTED (Not Detect.); NG PCR NOT DETECTED (Not Detect.)
[2024-03-11 07:57] LABS: Syphilis Screen Nonreactive (Nonreactive)
== END 2024-03-10 09:44 | disposition home or self-care (01) ==
LOC: HO.HHCL 09:43
PROVIDERS: Family Medicine; Visit Provider Registered Nurse
DX: F41.9 Anxiety disorder, unspecified (principal); Z11.3 Encounter for screening for infections with a predominantly sexual mode of transmission; I10 Essential (primary) hypertension; E78.00 Pure hypercholesterolemia, unspecified; R73.03 Prediabetes; Z02.83 Encounter for blood-alcohol and blood-drug test
CPT/HCPCS: 80048; 80061; 80076; 80307; 82043; 82570; 83036; 86780; 86803; 87389; 87491; 87591

== ENCOUNTER 2024-04-11 20:42 | Emergency (ER) | payer MEDICAID, SELFPAY ==
--- NOTE | ~2024-04-11 | US_ITS ---
CLINICAL HISTORY: mid lower pain, unknown gestation US OB 1st trimester transabdominal and transvaginal, with limited Doppler imaging. Comparison: None Findings: Partially imaged uterus is anteverted and measures 14 cm long axis. Imaged endometrium measures up to 2.2 cm thickness. Portions of the uterus obscured by side lobe artifacts. Abnormal appearance of the endometrium can be seen with decidual cast, decidual reaction, and early implantation. No definite intrauterine gestation is confirmed or defined at this time. No significant free fluid in the partially imaged pelvis. No pole or heart rate to confirm intrauterine at this time. Small cysts adjacent to the cervix likely due to 5 mm nabothian cysts. Right ovary measures 3.8 x 2.9 x 2.4 cm. Left ovary measures 4.6 x 2.9 x 2.8 cm. No definite ectopic or heterotopic . Doppler: Doppler arterial waveform of the right ovary demonstrates peak systolic velocity of 6 centimeters/second and resistive index of 0.5, accounting for aliasing artifacts. Doppler arterial waveform of the left ovary demonstrates peak systolic velocity of the 25 centimeters/second and resistive index of 0.6, accounting for aliasing artifacts. IMPRESSION: 1. No intrauterine confirmed by ultrasound criteria. Recommend continued trending quantitative beta HCG data. Timing for follow-up pelvic ultrasound can be determined on a clinical basis. 2. No ultrasound findings of ovarian torsion. This document has been electronically signed by: Leo Lawler MD on 04/11/2024 23:57:34
--- NOTE | 2024-04-11 20:54 | ED_ITS ---
HPI - Female Genitourinary General Chief complaint: Abdominal Pain Stated complaint: DR sidney + preg test / abdominal pain Time Seen by Provider: 04/11/24 23:55 Source: patient Mode of arrival: ambulatory Limitations: no limitations History of Present Illness ED Provider: Dr. Latrice Ordonez HPI Narrative: Patient comes to the emergency room complaining of abdominal fullness. Patient states that she has no significant abdominal pain. Denies vaginal leakage or vaginal spotting or bleeding. Patient states that 1 week ago she had a positive home test. Today she received a phone call from her primary care physician which confirmed the positive result. With this , patient is a A1 , unclear gestational age. Patient states that she has very irregular menstrual period and she has no idea when she has her last menstrual period. Patient complaining of dysuria, denies flank pain, denies fever chills. Related Data Home Medications ?Medication ?Instructions ?Recorded ?Confirmed acetaminophen 325 mg tablet 650 mg PO Q6H PRN 01/12/20 01/17/21 (Tylenol) albuterol sulfate 90 mcg/actuation 2 puff inhalation Q6H PRN 01/12/20 01/17/21 aerosol inhaler sumatriptan succinate 50 mg tablet 50 mg PO Q2-4H PRN 01/12/20 01/17/21 (Imitrex) hydrochlorothiazide 25 mg tablet 25 mg PO DAILY 10/04/20 01/17/21 Previous Rx's ?Medication ?Instructions ?Recorded ibuprofen 600 mg tablet 600 mg PO TID PRN pain #30 tabs 03/27/20 ibuprofen 600 mg tablet 600 mg PO Q6H PRN fever or pain 12/27/23 #30 tabs nitrofurantoin 100 mg PO BID 7 days #14 caps 04/12/24 monohydrate/macrocrystals 100 mg capsule Allergies Allergy/AdvReac Type Severity Reaction Status Date / Time Penicillins [PCN] Allergy Itching Verified 04/11/24 20:56 Review of Systems 2 Review of Systems: Constitutional : No Weight loss, No Fever, No Chills, No Night Sweats, No Fatigue, No Malaise ENT/Mouth : No Hearing loss, No Ear Pain, No Nasal Congestion, No Sinus Pain, No Hoarseness, No sore throat, No Rhinorrhea, No Swallowing Difficulty Eyes: No Eye Pain, No Swelling, No Redness, No Foreign Body, No Discharge, No Vision Changes Cardiovascular : No Chest Pain, No SOB, No Dyspnea on Exertion, No Orthopnea, No Edema, No Palpitations Respiratory : No Cough, No Sputum, No Wheezing, No Smoke Exposure, No Dyspnea Gastrointestinal : No Nausea, No Vomiting, No Diarrhea, No Constipation, complaining of abdominal fullness without abdominal Pain, No Hematochezia, No Melena Genitourinary : Complaining of irregular menstruation, complaining of dysuria, denies vaginal spotting or bleeding, No Urinary Frequency, No Hematuria, No Urinary Incontinence, No Urgency, No Flank Pain, No Urinary Flow Changes, No Hesitancy Musculoskeletal : No joint pain, No Myalgias, No Joint Swelling Skin : No Skin Lesions, No rash Neuro : No Weakness, No Numbness, No Paresthesias, No Loss of Consciousness, No Dizziness, No Headache Psych : No Anxiety/Panic, No Depression, No SI/HI/AH/VH, No Social Issues, Heme/Lymph: No Bruising, No Bleeding,No Lymphadenopathy Endocrine : No Polyuria, No Polydipsia, No Temperature Intolerance PMFSH Past Medical History Medical History Menorrhagia Weight loss Vitamin D deficiency Amenorrhea Migraine Surgical History History of surgery [place] teeth extracted Family History Family History Father Diabetes High cholesterol Mother Hypertension Depression Social History Social History Alcohol intake: current Alcohol intake frequency: does not drink Patient Tobacco Use Status: Current everyday Tobacco user Cigarettes Per Day: 3 Years Smoked: 5 Smoked in Last 30 Days: Yes Use of substances other than those prescribed or required for medical reasons: No Advance Directives: No Advance Directives Information Provided: Yes Do you have a plan to hurt others: No Plan Patient : Yes Physical Exam 2 Vital Signs: Vital Signs: Last Vital Signs Temp 97.9 F 04/12/24 00:45 Pulse 69 04/12/24 00:45 Resp 17 04/12/24 00:45 BP 113/57 L 04/12/24 00:45 Pulse Ox 96 04/12/24 00:45 O2 Del Method Room Air 04/12/24 00:45 BMI result Body Mass Index 38.6 Const: Other: Appearance: Alert. Oriented X3. No acute distress. Eyes: Pupils equal, round and reactive to light. ENT: Pharynx normal. Neck: Normal inspection. Neck supple. No lymph nodes noted. No crepitus CVS: Normal heart rate and rhythm. Pulses normal. Normal S1 and S2 Respiratory: No respiratory distress. Breath sounds normal. No Wheezing. No rales Abdomen: Soft and nontender. No rigidity. No distention. Skin: Skin warm and dry. Normal skin color. Normal skin turgor. Extremities: No lower extremity edema. No Lacerations. No Rash Neuro: Oriented X 3. No motor deficit. No sensory deficit. Moving all extremities. No slurred speech. CN 2 through 12 grossly intact Psych: calm, cooperative, normal affect Course Course Course Narrative: This is an RME performed by [employer]TELLIGENCE CONSULTANT: Additional HPI, ROS, PE not included below will be deferred to primary provider. Patient is a 28-year-old female who presents emergency department for evaluation, had recent home test positive last week, has been having constant mid lower abdominal cramping that is worse when urinating. Last menstrual period is unknown due to chronically irregular periods believes it has been a few months. Denies vaginal spotting or bleeding. Denies fevers, chills, nausea, vomiting Plan: Urinalysis, serum labs, ultrasound Medications Administered Discontinued Medications Generic Name Dose Route Start Last Admin Trade Name Freq PRN Reason Stop Dose Admin Nitrofurantoin Macrocrystals 100 mg 04/12/24 00:29 04/12/24 00:33 Nitrofurantoin Monohyd/M-Cryst 100 Mg Capsule PO 04/12/24 00:30 100 mg ONCE ONE Administration Medical Decision Making Medical Decision Making [facility] Narrative: Physical exam reassuring, patient did not have any pain to palpation in the lower quadrants, or anywhere in the abdomen. My interpretation of labs: Patient's white blood cell count 12.2, likely reactive leukocytosis. No significant abnormality and chemistry. HCG 645. Urinalysis positive for UTI Ultrasound confirmed an intrauterine . However, there was an abnormal appearance of the endometrium which could be secondary to an early implantation. No pole visualized. Patient does not have any abdominal pain on palpation. Patient's vitals stable, no bleeding. At this time, it is unlikely that this would be an ectopic . Likely this is a very early . I discussed with the patient's signs and symptoms of ectopic and went to return immediately to emergency room. Patient was given an outpatient lab form to repeat hCG and also a referral to see Dr. Jones from [facility]. Differential Diagnosis Differential Diagnoses: The differential diagnosis associated with the presentation includes (As above) Lab Data MDM Lab Attestation statement: I reviewed the patient's lab results. 04/11/24 21:42 04/11/24 21:42 Labs: Lab Results 04/11/24 04/12/24 Range/Units 21:42 00:10 WBC 12.2 H (4.8-10.8) X10*3/uL RBC 4.48 (4.20-5.50) X10*6/uL Hgb 13.3 (12.0-16.0) g/dl Hct 38.8 (37.0-47.0) % MCV 86.6 (80.0-98.0) fL MCH 29.7 (27.0-33.0) pg MCHC 34.3 (31.0-35.0) g/dl RDW 14.3 (11.0-16.0) % Plt Count 314 (160-400) X10*3/uL MPV 10.3 (9.4-12.3) fL Immature Gran % (Auto) 0.5 H (0.0-0.4) % Neut % (Auto) 58.5 (45-73) % Lymph % (Auto) 33.9 (20-40) % Rains % (Auto) 5.7 (2-11) % Eos % (Auto) 0.9 (0-4) % Baso % (Auto) 0.5 (0-2) % Lymph # (Auto) 4.1 (1.2-4.9) X10*3/uL Rains # (Auto) 0.7 (0.1-1.2) X10*3/uL Eos # (Auto) 0.1 (0.0-0.4) X10*3/uL Baso # (Auto) 0.1 (0.0-0.2) X10*3/uL Abs Immat Gran (auto) 0.06 H (0.00-0.03) X10*3/uL Absolute Neuts (auto) 7.1 (2.0-8.3) x10*3/uL Absolute Nucleated RBC 0.000 (0.0-0.012) X10*3/uL Nucleated RBC % (auto) 0.0 (0.0-0.2) /100WBC Sodium 139 (135-145) mmol/L Potassium 4.0 (3.3-5.1) mmol/L Chloride 110 H (96-108) mmol/L Carbon Dioxide 21 L (22-29) mmol/L Anion Gap 12 (12-20) BUN 12 (9-16) mg/dL Creatinine 0.71 (0.5-1.4) mg/dL Estim Creat Clear Calc 121.3 Estimated GFR > 60 Random Glucose 105 (60-115) mg/dL Calcium 8.9 D (8.4-10.2) mg/dL Total Bilirubin 0.1 (0.0-1.0) mg/dL AST 24 (5-31) U/L ALT 22 (0-31) U/L Alkaline Phosphatase 60 (39-117) U/L Total Protein 7.6 (6.5-8.0) g/dL Albumin 3.7 (3.5-5.0) g/dL Beta HCG, Quant 645 mIU/mL Urine Color Yellow Urine Appearance Cloudy Urine pH 6.0 (5.0-9.0) Ur Specific [place] 1.025 (1.005-1.025) Urine Protein Negative (Neg-Trace) mg/dL Urine Glucose (UA) Negative (Negative) mg/dL Urine Ketones Negative (Negative) mg/dL Urine Blood Negative (Negative) Urine Nitrite Negative (Negative) Ur Leukocyte Esterase Moderate (2+) H (Negative) Urine RBC 0-2 (0-2) /HPF Urine WBC 6-10 H (0-5) /HPF Ur Squamous Epith Cells 11-20 (0-2) /HPF Urine Bacteria 1+ (None Seen) Hyaline Casts 0-2 (0-2) /LPF Discharge Plan Discharge Clinical Impression: Positive test Patient Disposition: Home, Self-Care Instructions: (ED) Additional Instructions: If you have any significant abdominal pain, vaginal bleeding. Any new symptoms, please return to the emergency room. Please present to the main door of the hospital on March 14 at 07:00, they will let you know where the lab is. Please follow-up with your primary care physician tomorrow. If you have any worsening or new symptoms, please return to the emergency room or call 911 Prescriptions: New nitrofurantoin monohyd/m-cryst 100 mg capsule 100 mg PO BID 7 Days Qty: 14 0RF Rx Instructions: must administer with a meal/food No Action ibuprofen 600 mg tablet 600 mg PO TID PRN (Reason: pain) Qty: 30 0RF ibuprofen 600 mg tablet 600 mg PO Q6H PRN (Reason: fever or pain) Qty: 30 0RF acetaminophen [Tylenol] 325 mg tablet 650 mg PO Q6H PRN sumatriptan succinate [Imitrex] 50 mg tablet 50 mg PO Q2-4H PRN Rx Instructions: do not exceed 4 doses per 24 hrs albuterol sulfate 90 mcg/actuation HFA aerosol inhaler 2 puff inhalation Q6H PRN hydrochlorothiazide 25 mg tablet 25 mg PO DAILY Referrals: Ned Hall MD [Physician] - 04/14/24 Interventions: ED Discharge Assessment Last Done: 04/12/24 00:45 Discharge Date/Time: 04/12/24 00:46 Print Language: Uruguayan
[2024-04-11 20:55] VITALS: BP 129/82; PULSE 78; RESP 18; TEMP 36.4; O2SAT 99; BMI 38.6
[2024-04-11 21:47] LABS: MANUAL DIFF FLAG NO
[2024-04-11 21:48] LABS: Basophils Absolute Auto 0.1 X10*3/uL (0.0-0.2); Basophils Percent Auto 0.5 % (0-2); Eosinophils Absolute Auto 0.1 X10*3/uL (0.0-0.4); Eosinophils Percent Auto 0.9 % (0-4); Hematocrit 38.8 % (37.0-47.0); Hemoglobin 13.3 g/dl (12.0-16.0); Imm Gran Abs Auto 0.06 X10*3/uL (0.00-0.03); Imm Gran Pct Auto 0.5 % (0.0-0.4); Lymphocytes Absolute Auto 4.1 X10*3/uL (1.2-4.9); Lymphocytes Percent Auto 33.9 % (20-40); Mean Corpuscular HGB Conc 34.3 g/dl (31.0-35.0); Mean Corpuscular Hemoglobin 29.7 pg (27.0-33.0); Mean Corpuscular Volume 86.6 fL (80.0-98.0); Mean Platelet Volume 10.3 fL (9.4-12.3); Monocytes Absolute Auto 0.7 X10*3/uL (0.1-1.2); Monocytes Percent Auto 5.7 % (2-11); Neutrophils Absolute Auto 7.1 x10*3/uL (2.0-8.3); Neutrophils Percent Auto 58.5 % (45-73); Platelet Count 314 X10*3/uL (160-400); Red Blood Count 4.48 X10*6/uL (4.20-5.50); Red Cell Distribution Width 14.3 % (11.0-16.0); White Blood Count 12.2 X10*3/uL (4.8-10.8)
[2024-04-11 22:11] LABS: Alanine Aminotransferase 22 U/L (0-31); Albumin Level 3.7 g/dL (3.5-5.0); Alkaline Phosphatase 60 U/L (39-117); Anion Gap 12 (12-20); Aspartate Amino Transferase 24 U/L (5-31); Bilirubin Total 0.1 mg/dL (0.0-1.0); Blood Urea Nitrogen 12 mg/dL (9-16); Calcium 8.9 mg/dL (8.4-10.2); Carbon Dioxide 21 mmol/L (22-29); Chloride 110 mmol/L (96-108); Creatinine Clr Calc Pharmacy 121.3; Estimated Glomerular Filt Rate > 60; Glucose Random 105 mg/dL (60-115); HCG Quantitative 645 mIU/mL; Sodium 139 mmol/L (135-145); Total Protein 7.6 g/dL (6.5-8.0)
[2024-04-11 23:51] VITALS: BP 112/59; PULSE 80; RESP 14; O2SAT 97
[2024-04-12 00:16] LABS: Appearance Urine Cloudy; Color Urine Yellow; Glucose Urine UA Negative (Negative); Leukocyte Esterase Urine Moderate (2+) (Negative); Nitrite Urine Negative (Negative); Specific Gravity - Urine 1.025 (1.005-1.025); UMIC TRIGGER UACC YES; Urine Blood Negative (Negative); Urine Ketones Negative (Negative); Urine Protein Negative (Neg-Trace)
[2024-04-12 00:20] LABS: Bacteria Urine 1+ (None Seen); Hyaline Casts Urine 0-2 /LPF (0-2); RBC Urine 0-2 /HPF (0-2); UACC Culture Trigger YES
[2024-04-12] MEDS: Nitrofurantoin Monohyd/M-Cryst 100 MG CAPSULE PO (00:33)
[2024-04-12 00:45] VITALS: BP 113/57; PULSE 69; RESP 17; TEMP 36.6; O2SAT 96
== END 2024-04-12 00:46 | disposition home or self-care (01) ==
PROVIDERS: Nurse Practitioner Family; Emergency Provider Emergency Medicine; PCP Family Medicine
DX: O23.41 Unspecified infection of urinary tract in pregnancy, first trimester (principal); N39.0 Urinary tract infection, site not specified; R10.2 Pelvic and perineal pain; Z3A.01 Less than 8 weeks gestation of pregnancy; Z79.899 Other long term (current) drug therapy
CPT/HCPCS: 36415; 76801; 76817; 80053; 81001; 84702; 85025; 87086; 99284

== ENCOUNTER 2024-04-14 08:02 | Outpatient (REF) | payer MEDICAID, SELFPAY ==
--- OUTSIDE RECORDS SUMMARY | 2024-04-14 08:13 | XMS_ITS | Encounter Summary ---
Author Organization [employer] Address [address] [place] [address] Care Team Providers Care Tannery Gummer Name Role Phone Rose Walker MD Primary Care Provider +1- [phone] Encounter Details Date Type Department Care Team ([facility] st Contact Info) Description 08/08/2023 Orders Only [facility] MEDICINE [address] [place] [address] Sophia Glover MD [address] [place] [address] Social History Tobacco Use Types Packs/Day Years [...] as of this encounter Plan of Treatment Upcoming Encounters Date Type Department Care Team (Late st Contact Info) Description 06/02/2024 11:15 AM EDT Office Visit [facility] MEDICINE [address] [place] [address] Rose Walker MD [address] [place], [place] [phone] documented as of this encounter Goals Goal Patient Goal Type Associated Problems Recent Progress Patient-Stated? Author Smoking cessation General No Lucie Oconnell, PharmD documented as of this encounter Visit Diagnoses Not on filedocumented in this encounter Care Teams Tannery Gummer Relationship Specialty Start Date End Date Rose Walker MD [address] [place], [place] [phone] PCP - General Family Medicine 02/17/18 documented as of this encounter
--- OUTSIDE RECORDS SUMMARY | 2024-04-14 08:13 | XMS_ITS | Encounter Summary ---
Author Organization [employer] Address [address] [place] [address] Care Team Providers Care Extrusion Operator Name Role Phone Rose Walker MD Primary Care Provider +1- [phone] Reason for Visit * Reason Onset Date Comments Med Refill 02/24/2024 Encounter Details Date Type Department Care Team (Late st Contact Info) Description 02/24/2024 Refill [facility] MEDICINE [address] [place] [address] Rose Walker MD [address] [place] [address] Gastroesophageal reflux disease, unspecified whether esophagitis present [...] Description 06/02/2024 11:15 AM EDT Office Visit [facility] MEDICINE [address] [place] [address] Rose Walker MD [address] [place] [address] documented as of this encounter Goals Goal [...] documented as of this encounter Care Teams Extrusion Operator Relationship Specialty Start Date End Date Rose Walker MD [address] [place], [place] [phone] PCP - General Family Medicine 02/17/18 documented as of this encounter
--- OUTSIDE RECORDS SUMMARY | 2024-04-14 08:13 | XMS_ITS | Encounter Summary ---
Author Organization [employer] Address [address] [place] [address] Care Team Providers Care Director Of Athletics Name Role Phone Rose Walker MD Primary Care Provider +1- [phone] Reason for Visit * Reason Onset Date Comments Med Refill 08/24/2023 Encounter Details Date Type Department Care Team (Late st Contact Info) Description 08/24/2023 Refill [facility] MEDICINE [address] [place] [address] Sophia Glover MD [address] [place] [address] Social History Tobacco Use Types Packs/Day Years [...] t he electric, gas, oil or water [employer] threatened to shut off services in your [...] Description 06/02/2024 11:15 AM EDT Office Visit [facility] MEDICINE [address] [place] [address] Rose Walker MD [address] [place] [address] documented as of this encounter Goals Goal Patient Goal Type Associated Problems Recent Progress Patient-Stated? Author Smoking cessation General No Lucie Oconnell, PharmD documented as of this encounter Visit Diagnoses Not on filedocumented in this encounter Care Teams Director Of Athletics Relationship Specialty Start Date End Date Rose Walker MD [address] [place], [place] [phone] PCP - General Family Medicine 02/17/18 documented as of this encounter
--- OUTSIDE RECORDS SUMMARY | 2024-04-14 08:13 | XMS_ITS | Encounter Summary ---
Author Organization [employer] Address [address] [place] [address] Care Team Providers Care Tractor Sweeper Driver Name Role Phone Rose Walker MD Primary Care Provider +1- [phone] Encounter Details Date Type Department Care Team (Late st Contact Info) Description 08/24/2023 Orders Only [facility] MEDICINE [address] [place] [address] Rose Walker MD [address] [place] [address] Obesity (BMI 35.0-39.9 without comorbidity) (Primary Dx) [...] t he electric, gas, oil or water [employer] threatened to shut off services in your [...] Description 06/02/2024 11:15 AM EDT Office Visit [facility] MEDICINE [address] [place] [address] Rose Walker MD [address] [place] [address] documented as of this encounter Goals Goal Patient Goal Type Associated Problems Recent Progress Patient-Stated? Author Smoking cessation General No Lucie Oconnell, PharmD documented as of this encounter Visit Diagnoses Diagnosis Obesity (BMI 35.0-39.9 without comorbidity)- Primary documented in this encounter Care Teams Tractor Sweeper Driver Relationship Specialty Start Date End Date Rose Walker MD [address] [place] [address] PCP - General Family Medicine 02/17/18 documented as of this encounter
--- OUTSIDE RECORDS SUMMARY | 2024-04-14 08:13 | XMS_ITS | Encounter Summary ---
Author Organization [employer] Address [address] [place] [address] Care Team Providers Care Traveling Inventory Associate Name Role Phone Rose Walker MD Primary Care Provider +1- [phone] Reason for Visit * Reason Onset Date Comments Med Refill 08/02/2023 Encounter Details Date Type Department Care Team (Late st Contact Info) Description 08/02/2023 Refill [facility] MEDICINE [address] [place] [address] Rose Walker MD [address] [place] [address] Social History Tobacco Use Types Packs/Day Years [...] t he electric, gas, oil or water [employer] threatened to shut off services in your [...] Description 06/02/2024 11:15 AM EDT Office Visit [facility] MEDICINE [address] [place] [address] Rose Walker MD [address] [place] [address] documented as of this encounter Goals Goal Patient Goal Type Associated Problems Recent Progress Patient-Stated? Author Smoking cessation General No Lucie Oconnell, PharmD documented as of this encounter Visit Diagnoses Not on filedocumented in this encounter Care Teams Traveling Inventory Associate Relationship Specialty Start Date End Date Rose Walker MD [address] [place], [place] [phone] PCP - General Family Medicine 02/17/18 documented as of this encounter
--- OUTSIDE RECORDS SUMMARY | 2024-04-14 08:14 | XMS_ITS | Clinical Summary ---
Author Organization [employer] Address [address] [facility] [address] [place] [address] Care Team Providers Care Manager Motor Name Role Phone Rose Walker MD Primary Care Provider [phone] Allergies Active Allergy Reactions Criticality Noted Date Comments Amoxicillin 11/07/2021 Medications * This document contains information received from the source organization and may not represent a complete record from that organization. cholecalciferol (D3 Super Strength) 50 MCG (1999 UT) capsuleIndicatio ns:Vitamin D deficiency Take 1 capsule (50 mcg) by mouth in the morning. 90 capsule 11/16/19 23 Active fluticasone (Flonase) 50 MCG/ACT nasal sprayIndications :Allergic rhinitis, unspecified seasonality, unspecified trigger INSTILL 1-2 SPRAYS IN EACH NOSTRIL ONCE DAILY NEEDED 48 g 11/16/19 23 Active Acetaminophen Extra Strength 500 MG tabletIndication s:History of migraine headaches TAKE 2 TABLETS BY MOUTH EVERY 8 HOURS NEEDED FOR MILD PAIN 30 tablet 3 08/19/19 24 Active Semaglutide-Weig ht Management 1.7 MG/0.75ML solution auto-injectorInd ications:Obesity (BMI 35.0-39.9 without comorbidity) Inject 1.7 mL under the skin every 7 (seven) days. 2 mL 11/20/19 24 Active albuterol (Ventolin HFA) 108 (90 Base) MCG/ACT inhalerIndicatio ns:Mild intermittent asthma without complication INHALE 2 PUFFS BY MOUTH EVERY 4 TO 6 HOURS NEEDED 18 g 3 12/17/19 24 Active ondansetron (Zofran) 4 MG tabletIndication s:Nausea TAKE 1 TABLET BY MOUTH EVERY DAY NEEDED FOR NAUSEA AND VOMITING 10 tablet 3 12/17/19 24 Active Vit-Fe Fumarate-FA ( Vitamins) 28-0.8 MG tabletIndication s:Pre-diabetes,P COS (polycystic ovarian syndrome) TAKE 1 TABLET BY MOUTH EVERY MORNING 90 tablet 12/17/19 24 Active SUMAtriptan (Imitrex) 50 MG tabletIndication s:History of migraine headaches TAKE 1 TABLET BY MOUTH ONE TIME IF NEEDED FOR MIGRAINE. MAY REPEAT DOSE ONCE IN 2 HOURS IF NO RELIEF. DO NOT EXCEED 2 DOSES IN 24 HOURS. 9 tablet 01/27/20 24 Active Semaglutide-Weig ht Management (Wegovy) 2.4 MG/0.75ML solution auto-injectorInd ications:Class 2 obesity INJECT ONE PEN (=2.4 MG) SUBCUTANEOUSLY ONCE A WEEK 3 mL 02/24/19 25 Active pantoprazole (Protonix) 40 MG EC tabletIndication s:Gastroesophage al reflux disease, unspecified whether esophagitis present TAKE 1 TABLET BY MOUTH BEFORE BREAKFAST. DO NOT CRUSH, CHEW OR SPLIT. 90 tablet 02/24/19 25 Active Active Problems Problem Noted Date Diagnosed Date Social anxiety in childhood 03/03/2024 Mild intermittent asthma without complication Overview (12/17/2023): Well-controlled with PRN use of albuterol (Ventolin HFA) 108 (90 Base) MCG/ACT inhaler Assessment & Plan (12/18/2023 12:45 PM EDT): Well-controlled with PRN use of albuterol (Ventolin HFA) 108 (90 Base) MCG/ACT inhaler Pap smear for cervical cancer screening 12/17/19 24 Overview (12/17/2023): 07/18/21 NILM Elevated cholesterol 12/17/2023 [...] care facilitated by [facility] in [place] -dental home is [facility] care proxy filed 12/17/23 Irregular menses [...] was 216 lbs, Today weight is 233lbs -Adoreenda did not get covered Assessment & Plan [...] organization. Date Type Department Care Team Description 04/12/2024 Orders Only GENERIC EXTERNAL DATA DEPARTMENT Provider, Generic External Data 04/11/2024 Orders Only GENERIC EXTERNAL DATA DEPARTMENT Provider, Generic External Data 04/09/2024 Orders Only [facility] [place] [address] Rose Walker MD , unspecified gestational age (Primary Dx) 04/06/2024 Telephone [facility] [address] Rose Walker MD Appointment Request 03/26/2024 Telephone [facility] [place] [address] Radha Oneill [place] appt (I left a Vm to the pt to call back to schedule an appt for follow up Wt check.) 03/25/2024 Telephone [facility] [place] [address] Rose Walker MD Prior Authorization (Wegovy) 02/24/2024 Refill [facility] [address] [place] [address] Rose Walker MD Gastroesophageal reflux disease, unspecified whether esophagitis present 02/24/2024 Refill [facility] [address] [place] [address] Rose Walker MD Class 2 obesity (Primary Dx); Gastroesophageal reflux disease, unspecified whether esophagitis present 02/05/2024 Travel 01/26/2024 Refill [facility] [address] [place] [address] Rose Walker MD History of migraine headaches; Gastroesophageal reflux disease, unspecified whether esophagitis present; Nausea; Pre-diabetes; PCOS (polycystic ovarian syndrome) from Last 3 Months Immunizations Name Administration Dates Next Due DTaP 11/30/2012, 7,12/07/1998,10/13,01/14/1995,1994,1994 HPV, Quadrivalent 10/10/2006,06/16/2006,04/11/19 07 Hep A, Adult 12/17/2023,11/15/2022 Hep B, Adolescent or Pediatric 6,01/14/1995,1994,06/26 Hib (HbO) 10/14/1995, 5,1994,09/02 IPV 12/07/1998,199 5,1994,09/02 Influenza Injectable Quadriv alant Preservative Free [...] 12/17/2023 3:44 PM EDT Plan of Treatment Upcoming Encounters Date Type Department Care Team (Late st Contact Info) Description 06/02/2024 11:15 AM EDT Office Visit [facility] [address] [place] [address] Rose Walker MD [address] [place] [address] Health Maintenance Due Date Last Done Comments Dental Oral Exam 1994 Dental Prophylaxis 1994 Dental X-Ray: Bitewings 1994 Dental X-Ray: Full Mouth 12/06/2022 12/06/2019 Pap Smear 07/18/2024 07/18/2021, 07/18/2021 Alcohol/Substance Use Screening 12/16/2024 12/17/2023 COVID-19 Vaccine ( season) 2024 04/16/2021, 03/31/2020, 03/31/2020, Additional history exists Postponed from 10/19/2023 (Patient Refused) Depression Screening 12/16/2024 12/17/2023, 12/17/19 24 Family Planning (PISQ) 12/16/2024 12/17/2023 SDOH Screening 12/16/2024 12/17/2023 Tobacco Screening 12/16/2024 12/17/2023 Lipid Panel 03/10/2029 03/10/2024, 08/17, 11/15/2022, Additional history exists DTaP/Tdap/Td Vaccines (10 - [...] Completed 09/12/2015, 01/14/1995, 1994, Additional history exists Pneumococcal Vaccine: Pediatrics (0 to 5 Years) and At-Risk Patients (6 to 49) Years) Completed 11/15/2022, 03/02/2014 Influenza Vaccine Completed 12/02/2023, , 11/12/2021, Additional history exists Hepatitis A Vaccines Completed 12/17/2023, 11/16/19 HIV Screening Completed 03/10/2024, 10/19, 02/07/2022, Additional history exists Hepatitis C Screening Completed 03/10/2024 , 11/15/2022, 02/07/2022, Additional history exists RSV under 20 months Aged Out No longe r eligible based on patient's age to complete this topic Rotavirus Vaccines Aged Out No longer eligible based on patient's age to complete this topic Goals Goal Patient Goal Type Associated Problems Recent Progress Patient-Stated? Author Smoking cessation General No Lucie Oconnell, CodyD Procedures Procedure Name Priority Date/Time Associated Diagnosis Comments URINALYSIS, COMPLETE, WITH REFLEX TO CULTURE Routine 04/12/2024 12:10 AM EST CULTURE, URINE, ROUTINE Routine 04/12/2024 12:10 AM EST US OB PELVIS TRANSVAGINAL Routine 04/11/2024 11:57 PM EST HCG, TOTAL, QN Routine 04/11/2024 9:42 PM EST COMPREHENSIVE METABOLIC PANEL Routine 04/11/2024 9:42 PM EST CBC WITH AUTO DIFFERENTIAL Routine 04/11/2024 9:42 PM EST DRUG MONITOR, PANEL 1, SCREEN, URINE Routine 03/10/2024 9:46 AM EST Anxiety SYPHILIS SCREEN Routine 03/10/2024 9:46 AM EST Routine screening for STI (sexually transmitted infection) HIV 1/2 ANTIGEN/ANTIBODY, FOURTH GENERATION W/RFL Routine 03/10/2024 9:46 AM EST Routine screening for STI (sexually transmitted infection) HEPATITIS C AB W/REFL TO HCV RNA, QN, PCR Routine 03/10/2024 9:46 AM EST Routine screening for STI (sexually transmitted infection) BASIC METABOLIC PANEL Routine 03/10/2024 9:46 AM EST Primary hypertension HEMOGLOBIN A1C Routine 03/10/2024 9:46 AM EST Pre-diabetes LIPID PANEL, STANDARD Routine 03/10/2024 9:46 AM EST Elevated cholesterol HEPATIC FUNCTION PANEL Routine 03/10/2024 9:46 AM EST Elevated cholesterol ALBUMIN, RANDOM URINE W/CREATININE Routine 03/10/2024 9:46 AM EST Primary hypertension CHLAMYDIA/N. GONORRHOEAE RNA, TMA, UROGENITAL Routine 03/10/2024 9:46 AM EST Routine screening for STI (sexually transmitted infection) PAP SMEAR Routine 07/18/2021 12:00 AM EDT PANORAMIC RADIOGRAPHIC IMAGE Routine 12/06/2019 12:00 AM EDT from Last 3 Months or Most Recently Relevant to Health Maintenance Results * (ABNORMAL) Urinalysis, Complete, with Reflex to Culture (04/12/2024 12:10 AM EST) Color Urine Yellow [facility] Appearance Urine Cloudy [facility] PH 6.0 5.0 - 9.0 [facility] Glucose Urine UA Negative Negative mg/dL [facility] Urine Blood Negative Negative [facility] Specific Stanton - Urine 1.025 1.005 - 1.025 [facility] Urine Protein Negative Neg-Trace mg/dL [facility] Urine Ketones Negative Negative mg/dL [facility] Nitrite Urine Negative Negative [facility] Leukocyte Esterase Urine Moderate (2+)(A) Negative [facility] RBC Urine 0-2 0 - 2 /HPF [facility] Urine WBC 6-10(A) 0 - 5 /HPF [facility] Urine Squamous Epithelial Cell 11-20 0 - 2 /HPF [facility] Urine Bacteria 1+ None Seen [facility] Hyaline Casts, Urine 0-2 0 - 2 /LPF [facility] 04/12/2024 12:1 0 AM EST 04/12/2024 12:13 AM EST Narrative [facility] - 04/12/2024 12:21 AM EST [id number], Clean Catch us Generic External Data Provider LAB URINE ORDERAB LES Final Result [facility] [address] [place] [phone] * Culture, Urine, Routine (04/12/2024 12:10 AM EST) Urine Urine specimen obtained by clean catch procedure / Unknown 04/12/2024 12:10 AM EST 04/12/2024 12:22 AM EST Comment:UACC Narrative [facility] - 04/13/2024 9:18 AM EST Lactobacillus species Quant > 100,000 cfu/mL Susc N/A Susceptibility not routinely performed on this isolate. Specimen Source: Urine clean catch us Generic External Data Provider LAB MICROBIOLOGY - GENERAL ORDERABLES Final Result [facility] [address] [place] [address] [phone] * US OB Pelvis with Transvaginal (04/11/2024 11:57 PM EST) Anatomical Region Laterality Modality Pelvis Ultrasound 04/11/2024 11:5 7 PM EST Narrative 04/11/2024 11:59 PM EST ? [facility] ?[address] ?[place] [address] ? Ultrasound Report ? Signed ? Patient: Ascencio,Raquel R ?MR#: [id number] ?? [id number] ? : 1995 ?Acct:[id number] ? Age/Sex: 28 / F ?ADM Date: 04/11/24 ? Loc: HO.ED ? Attending Dr: ? Ordering Physician: Marly Jean CNP ?? Date of Service: 04/11/24 ?? Procedure(s): US OB pelvic and transvaginal ?? Accession Number(s): [id number] ? cc: Marly Jean CNP; Rose Walker MD ? CLINICAL HISTORY: mid lower pain, unknown gestation ? US OB 1st trimester transabdominal and transvaginal, with limited Doppler ?? imaging. ? Comparison: None ? Findings: ?? Partially imaged uterus is anteverted and measures 14 cm long axis. Imaged ?? endometrium measures up to 2.2 cm thickness. Portions of the uterus ?? obscured by side lobe artifacts. ?? Abnormal appearance of the endometrium can be seen with decidual cast, ?? decidual reaction, and early implantation. No definite intrauterine ?? gestation is confirmed or defined at this time. ?? No significant free fluid in the partially imaged pelvis. ?? No pole or heart rate to confirm intrauterine at ?? this time. Small cysts adjacent to the cervix likely due to 5 mm nabothian ?? cysts. ?? Right ovary measures 3.8 x 2.9 x 2.4 cm. ?? Left ovary measures 4.6 x 2.9 x 2.8 cm. ?? No definite ectopic or heterotopic . ? Doppler: Doppler arterial waveform of the right ovary demonstrates peak ?? systolic velocity of 6 centimeters/second and resistive index of 0.5, ?? accounting for aliasing artifacts. Doppler arterial waveform of the left ?? ovary demonstrates peak systolic velocity of the 25 centimeters/second and ?? resistive index of 0.6, accounting for aliasing artifacts. ? IMPRESSION: ?? 1. No intrauterine confirmed by ultrasound criteria. Recommend ?? continued trending quantitative beta HCG data. Timing for follow-up pelvic ?? ultrasound can be determined on a clinical basis. ? 2. No ultrasound findings of ovarian torsion. ? This document has been electronically signed by: Leo Lawler MD on ?? 04/11/2024 23:57:34 ? Dictated By: ?Leo Lawler MD ? Signed By: ?<Electronically signed by Leo Lawler MD in OV> ? 04/11/24 5288 ? DD/ 56 ? TD/TT: 04/11/242356 ? Stna: ? Procedure Note Lan Wild - 04/12/2024 [place] [address] Ultrasound Report Signed Patient: Raquel Ascencio RMR#: [id number] : 1995Acct:[id number] Age/Sex: 28 FADM Date: 04/11/24 Loc: HO.ED Attending Dr: Ordering Physician: Marly Jean CNP Date of Service: 04/11/24 Procedure(s): US OB pelvic and transvaginal Accession Number(s): [id number] cc: Marly Jean CNP; Rose Walker MD CLINICAL HISTORY: mid lower pain, unknown gestation US OB 1st trimester transabdominal and transvaginal, with limited Doppler imaging. Comparison: None Findings: Partially imaged uterus is anteverted and measures 14 cm long axis. Imaged endometrium measures up to 2.2 cm thickness. Portions of the uterus obscured by side lobe artifacts. Abnormal appearance of the endometrium can be seen with decidual cast, decidual reaction, and early implantation. No definite intrauterine gestation is confirmed or defined at this time. No significant free fluid in the partially imaged pelvis. No pole or heart rate to confirm intrauterine at this time. Small cysts adjacent to the cervix likely due to 5 mm nabothian cysts. Right ovary measures 3.8 x 2.9 x 2.4 cm. Left ovary measures 4.6 x 2.9 x 2.8 cm. No definite ectopic or heterotopic . Doppler: Doppler arterial waveform of the right ovary demonstrates peak systolic velocity of 6 centimeters/second and resistive index of 0.5, accounting for aliasing artifacts. Doppler arterial waveform of the left ovary demonstrates peak systolic velocity of the 25 centimeters/second and resistive index of 0.6, accounting for aliasing artifacts. IMPRESSION: 1. No intrauterine confirmed by ultrasound criteria. Recommend continued trending quantitative beta HCG data. Timing for follow-up pelvic ultrasound can be determined on a clinical basis. 2. No ultrasound findings of ovarian torsion. This document has been electronically signed by: Leo Lawler MD on 04/11/2024 23:57:34 Dictated By: Leo Lawler MD Signed By: <Electronically signed by Leo Lawler MD in OV> 04/11/242357 DD/ 56 TD/TT: 04/11/242356 Stna: us [facility] External Provider IMG US PROCEDURES Edited Result - Final * (ABNORMAL) CBC auto differential (04/11/2024 9:42 PM EST) White Blood Count 12.2(H) 4.8 - 10.8 X10*3/uL [facility] Red Blood Count 4.48 4.20 - 5.50 X10*6/uL [facility] Hemoglobin 13.3 12.0 - 16.0 g/dl [facility] Hematocrit 38.8 37.0 - 47.0 % [facility] Mean Corpuscular Volume 86.6 80.0 - 98.0 fL [facility] Mean Corpuscular Hemoglobin 29.7 27.0 - 33.0 pg [facility] Mean Corpuscular HGB Conc 34.3 31.0 - 35.0 g/dl [facility] Red Cell Distribution Width 14.3 11.0 - 16.0 % [facility] Platelet Count 314 160 - 400 X10*3/uL [facility] Mean Platelet Volume 10.3 9.4 - 12.3 fL [facility] Neutrophils Percent Auto 58.5 45 - 73 % [facility] Imm Gran Pct Auto 0.5(H) 0.0 - 0.4 % [facility] Lymphocytes Percent Auto 33.9 20 - 40 % [facility] Monocytes Percent Auto 5.7 2 - 11 % [facility] Eosinophils Percent Auto 0.9 0 - 4 % [facility] Basophils Percent Auto 0.5 0 - 2 % [facility] NRBC Pct Auto 0.0 0.0 - 0.2 /100WBC [facility] Neutrophils Absolute Auto 7.1 2.0 - 8.3 x10*3/uL [facility] Imm Gran Abs Auto 0.06(H) 0.00 - 0.03 X10*3/uL [facility] Lymphocytes Absolute Auto 4.1 1.2 - 4.9 X10*3/uL [facility] Monocytes Absolute Auto 0.7 0.1 - 1.2 X10*3/uL [facility] Eosinophils Absolute Auto 0.1 0.0 - 0.4 X10*3/uL [facility] Basophils Absolute Auto 0.1 0.0 - 0.2 X10*3/uL [facility] NRBC Abs Auto 0.000 0.0 - 0.012 X10*3/uL [facility] 04/11/2024 9:42 PM EST 04/11/2024 9:46 PM EST us Generic External Data Provider LAB BLOOD ORDERAB LES Final Result [facility] [address] [place] [phone] [phone] * hCG, Total, Quantitative (04/11/2024 9:42 PM EST) Pathologist [facility] HCG Quantitative 645 mIU/mL [facility] Comment:Weeks post LMP Appro ximate hCG(Last Menstrual Period) Range (mIU/ml)3 - 4 weeks 9 - 1304 - 5 weeks 75 - 2,6005 - 6 weeks 850 - 20,8006 - 7 weeks 4000 - 100,2007 - 12 weeks 11,500 - 289,41171 - 16 weeks 18,300 - 137,78817 - 29 weeks (2nd trimester) 1,400 - 53,03685 - 41 weeks (3rd trimester) 940 - 60,000The Thornton B- hCG assay is used for the early detection ofpregnancy; it cannot be used to diagnose any conditionunrelated to . If a B-hCG level is not supportedby the clinical evidence, results should be confirmed by analternative method (qualitative urine hCG, for example). 04/11/2024 9:42 PM EST 04/11/2024 9:46 PM EST us Generic External Data Provider LAB BLOOD ORDERAB LES Final Result Performing Organization Address City/State/[facility] Co de Phone Number [facility] [address] [place] [phone] * (ABNORMAL) Comprehensive Metabolic Panel (04/11/2024 9:42 PM EST) Pathologist [facility] Sodium 139 135 - 145 mmol/L [facility] Potassium 4.0 3.3 - 5.1 mmol/L [facility] Comment:Slight Hemolysis.Int erpret result with caution. Chloride 110(H) 96 - 108 mmol/L [facility] Carbon Dioxide 21(L) 22 - 29 mmol/L [facility] Anion Gap 12 12 - 20 [facility] Urea Nitrogen (BUN) 12 9 - 16 mg/dL [facility] Creatinine, Serum 0.71 0.5 - 1.4 mg/dL [facility] Creatinine Clr Calc Pharmacy 121.3 [facility] Comment:Provided height and weight: 154.94 cm,92.7 kg.eGFR (calculated from the MDRD study equation) and eCrCl(calculated from the Cockcroft-Gault equation) are based ondifferent parameters and may not yield comparable results.If eCrCl result is absurd, please check patient'sheight/weight. Estimated Glomerular Filt Rate >60 [facility] Comment:Chronic Kidney Disea se: Estimated GFR < 60 mL/min/1.66w7Mfjalo Kidney Disease: Estimated GFR < 15 mL/min/1.73m2 Glucose 105 60 - 115 mg/dL [facility] Calcium 8.9 8.4 - 10.2 mg/dL [facility] Bilirubin, Total 0.1 0.0 - 1.0 mg/dL [facility] Aspartate Amino Transferase 24 5 - 31 U/L [facility] Comment:Slight Hemolysis.Int erpret result with caution. Alanine Aminotransferase 22 0 - 31 U/L [facility] Total Protein 7.6 6.5 - 8.0 g/dL [facility] Albumin Level 3.7 3.5 - 5.0 g/dL [facility] Alkaline Phosphatase 60 39 - 117 U/L [facility] 04/11/2024 9:42 PM EST 04/11/2024 9:46 PM EST us Generic External Data Provider LAB BLOOD ORDERAB LES Final Result Performing Organization Address [facility]/ZIP Co de Phone Number [facility] [address] [place] [phone] * Syphilis Screen (03/10/2024 9:46 AM EST) Syphilis Screen Nonreactive Nonreactive [facility] Blood Venous blood specimen / Unknown 03/10/2024 9:46 AM EST 03/10/2024 12:05 PM EST us Rose Walker MD LAB BLOOD ORDERABLES Final Result Performing Organization Address City/[facility]/ZIP Co de Phone Number [facility] [address] [place] [address] [phone] * Drug Monitoring, Panel 1, Screen, Urine (03/10/2024 9:46 AM EST) Opiate Screen Urine Not Detected Not Detect [facility] Comment:Opiate cut-off is 30 0 ng/mL.Positive results are unconfirmed and should not be used fornon-medical purposes. Barbiturates, Urine Not Detected Not Detect [facility] Comment:Barbiturate cut-off is 200 ng/mL.Positive results are unconfirmed and should not be used fornon-medical purposes. Phencyclidine Screen Urine Not Detected Not Detect [facility] Comment:Phencyclidine cut-of f is 25 ng/mL.Positive results are unconfirmed and should not be used fornon-medical purposes. Amphetamine Screen Urine Not Detected Not Detect [facility] Comment:Amphetamine cut-off is 1000 ng/mL.Positive results are unconfirmed and should not be used fornon-medical purposes. Benzodiazepines Screen Urine Not Detected Not Detect [facility] Comment:Benzodiazepine cut-o ff is 200 ng/mL.Positive results are unconfirmed and should not be used fornon-medical purposes. Cocaine Screen Urine Not Detected Not Detect [facility] Comment:Cocaine cut-off is 3 00 ng/mL.Positive results are unconfirmed and should not be used fornon-medical purposes. Cannabinoid Screen Urine Not Detected Not Detect [facility] Comment:Cannabinoid cut-off is 50 ng/mL.Positive results are unconfirmed and should not be used fornon-medical purposes. Methadone Screen, Urine Not Detected Not Detect ng/mL [facility] Comment:Methadone cut-off is 300 ng/mL.Positive results are unconfirmed and should not be used fornon-medical purposes. FENTANYL URINE Not Detected Not Detect [facility] Comment:Fentanyl cut-off is 1 ng/mL.Positive results are unconfirmed and should not be used fornon-medical purposes. Oxycodone Urine Screen Not Detected Not Detect ng/mL [facility] Comment:Oxycodone cut-off is 100 ng/mL.Positive results are unconfirmed and should not be used fornon-medical purposes. Buprenorphine Screen Not Detected Not Detect ng/mL [facility] Comment:Buprenorphine cut-of f is 5 ng/mL.Positive results are unconfirmed and should not be used fornon-medical purposes. Urine (Urine, Random) 03/10/2024 9:46 AM EST 03/10/2024 11:51 AM EST Merlin Davis PMHNP LAB URINE ORDERABLES Final Re sult Performing Organization Address [facility] Co de Phone Number [facility] [address] [place] [phone] * Albumin, Random Urine W/Creatinine (03/10/2024 9:46 AM EST) Creatinine, Urine 243.61 mg/dL [facility] Microalbumin Urine 9.0 mg/L [facility] Microalbum Creatinine Ratio Ur 3.6 <30 ug/mg cr [facility] Comment:Albumin/Creatinine R atio Reference Ranges: Normal: < 30 ug/mg creatinine Microalbuminuria: 30 - 300 ug/mg creatinineClinical Albuminuria: > 300 ug/mg creatinine Urine 03/10/2024 9:46 AM EST 03/10/2024 11:51 AM EST Rose Walker MD LAB URINE ORDERABLES Final Result Performing Organization Address [facility] de Phone Number [facility] [address] [place] [phone] * Hepatitis C Antibody with Reflex to HCV, RNA, Quantitative, Real-Time PCR (03/10/2024 9:46 AM EST) Hepatitis C Antibody Nonreactive Nonreactive [facility] Comment:Antibodies to HCV no t detected; does not exclude early acuteHCV infection. Blood Venous blood specimen / Unknown 03/10/2024 9:46 AM EST 03/10/2024 12:05 PM EST Rose Walker MD LAB BLOOD ORDERABLES Final Result [facility] [address] [place] [phone] [phone] * Chlamydia/N. Gonorrhoeae RNA, TMA, Urine (03/10/2024 9:46 AM EST) CT PCR NOT DETECTED Not Detect. [facility] Comment:A not detected test result does not exclude the possibilityof infection because test results can be affected byimproper specimen collection, concurrent antibiotic therapy,or the number of organisms in the specimen which may bebelow the sensitivity of the test. As with many diagnostictests, results from the Xpert CT/NG assay should beinterpreted in conjunction with other laboratory andclinical data available to the clinician.Xpert CT/NG performance has not been evaluated in patientsless than 14 years of age. The assay should not be used forthe evaluationof suspected sexual abuse or for other medico-legalindications. Additional testing is recommended in anycircumstance when false positive or false negative resultscould lead to adverse medical, social or psychologicalconsequences. NG PCR NOT DETECTED Not Detect. [facility] Comment:A not detected test result does not exclude the possibilityof infection because test results can be affected byimproper specimen collection, concurrent antibiotic therapy,or the number of organisms in the specimen which may bebelow the sensitivity of the test. As with many diagnostictests, results from the Xpert CT/NG assay should beinterpreted in conjunction with other laboratory andclinical data available to the clinician.Xpert CT/NG performance has not been evaluated in patientsless than 14 years of age. The assay should not be used forthe evaluationof suspected sexual abuse or for other medico-legalindications. Additional testing is recommended in anycircumstance when false positive or false negative resultscould lead to adverse medical, social or psychologicalconsequences. Urine, Random 03/10/2024 9:4 6 AM EST 03/10/2024 11:51 AM EST Narrative [facility] - 03/10/2024 2:47 PM EST Urine us Rose Walker MD LAB MICROBIOLOGY - GENERAL ORDERABLES Final Result Performing Organization Address [facility] Co de Phone Number [facility] [address] [place] [phone] * HIV-1/2 Antigen and Antibodies, Fourth Generation, with Reflexes (03/10/2024 9:46 AM EST) HIV AB/AG Nonreactive Nonreactive [facility] Comment:HIV-1 p24 Ag and/or HIV-1/HIV-2 Ab not detected.A test result that is nonreactive does not exclude thepossibility of exposure to or infection with HIV-1 and/orHIV-2. Nonreactive results in this assay for individualswith prior exposure to HIV-1 and/or HIV-2 may be due toantigen and antibody levels that are below the limit ofdetection of this assay.The DecisionView HIV Ag/Ab Combo assay result andsupplemental assay results should be interpreted inconjunction with the patient's clinical presentation,history and other laboratory results. If the results areinconsistent with clinical evidence, additional testing issuggested to confirm the result. Blood Venous blood specimen / Unknown 03/10/2024 9:46 AM EST 03/10/2024 12:05 PM EST Rose Wlaker MD LAB BLOOD ORDERABLES Final Result Performing Organization Address [facility] Co de Phone Number [facility] [address] [place] [phone] * Hemoglobin A1c (03/10/2024 9:46 AM EST) Hemoglobin A1c 5.5 <6.0 % [facility] Comment:Hemoglobin A1C Refer ence Range Adults: 4.8 - 6.0 % Non diabetic: < 6.0 % Goal: < 7.0 %Additional Action Suggested: > 8.0 %Note: Hemoglobin A1c results are invalid for patients with abnormal amounts of HbF. Blood transfusions may impact the HbA1c concentration in the patient sample. Estimated Average Glucose 111 mg/dL [facility] Comment:eAG = Estimated ave rage glucose which is %A1C expressed asaverage glucose, using the formula of the P0B-FjckwbqKtodxsf Glucose study (ADAG), Diabetes Care, Vol.31,#8,Sep. 2007 Blood Venous blood specimen / Unknown 03/10/2024 9:46 AM EST 03/10/2024 11:57 AM EST Rose Walker MD LAB BLOOD ORDERABLES Final Result Performing Organization Address City/[facility]/ZIP Co de Phone Number [facility] [address] [place] [address] [phone] * (ABNORMAL) Hepatic Function Panel (03/10/2024 9:46 AM EST) Bilirubin, Total 0.5 0.0 - 1.0 mg/dL [facility] Bilirubin, Direct 0.2 0.0 - 0.5 mg/dL [facility] Aspartate Amino Transferase 27 5 - 31 U/L [facility] Alanine Aminotransferase 25 0 - 31 U/L [facility] Total Protein 8.4(H) 6.5 - 8.0 g/dL [facility] Albumin Level 4.3 3.5 - 5.0 g/dL [facility] Alkaline Phosphatase 74 39 - 117 U/L [facility] Blood Venous blood specimen / Unknown 03/10/2024 9:46 AM EST 03/10/2024 12:05 PM EST Rose Walker MD LAB BLOOD ORDERABLES Final Result Performing Organization Address [facility]/ZIP Co de Phone Number [facility] [address] [place] [address] [phone] * (ABNORMAL) Lipid Panel, Standard (03/10/2024 9:46 AM EST) Triglycerides 105 <150 mg/dL [facility] Comment:Desirable Triglyceri de: less than 150 mg/dLBorderline High Triglyceride 150-199 mg/dLHigh Triglyceride: 200-499 mg/dLVery High Triglyceride: greater than or equal to 5OO mg/dL Cholesterol 213(H) <200 mg/dL [facility] Comment:Desirable Cholestero l: less than 200 mg/dLBorderline High Cholesterol: 200-239 mg/dLHigh Cholesterol: greater than 239 mg/dL LDL Cholesterol Calculated 143(H) <100 mg/dL [facility] Comment:Desirable LDL: less than 100 mg/dLNear Optimal/Above Optimal LDL: 110- 129 mg/dLBorderline High LDL: 130-159 mg/dLHigh LDL: 160-189 mg/dLVery High LDL: greater than or equal to 190 mg/dL HDL Cholesterol 49 >40 mg/dL [facility] Comment:Desirable HDL: great er than 40 mg/dL Note: This HDL assay may give artificially low results in patients with liver disease. Blood Venous blood specimen / Unknown 03/10/2024 9:46 AM EST 03/10/2024 12:05 PM EST us Rose Walker MD LAB BLOOD ORDERABLES Final Result [facility] [address] [place] [address], [place] [phone] * (ABNORMAL) Basic Metabolic Panel (03/10/2024 9:46 AM EST) Sodium 139 135 - 145 mmol/L [facility] Potassium 4.3 3.3 - 5.1 mmol/L [facility] Chloride 107 96 - 108 mmol/L [facility] Carbon Dioxide 27 22 - 29 mmol/L [facility] Anion Gap 9(L) 12 - 20 [facility] Urea Nitrogen (BUN) 12 9 - 16 mg/dL [facility] Creatinine, Serum 0.77 0.5 - 1.4 mg/dL [facility] Estimated Glomerular Filt Rate >60 [facility] Comment:Chronic Kidney Disea se: Estimated GFR < 60 mL/min/1.90s4Qynkgx Kidney Disease: Estimated GFR < 15 mL/min/1.73m2 Glucose 88 60 - 115 mg/dL [facility] Calcium 9.9 8.4 - 10.2 mg/dL [facility] Blood Venous blood specimen / Unknown 03/10/2024 9:46 AM EST 03/10/2024 12:05 PM EST Rose Walker MD LAB BLOOD ORDERABLES Final Result [facility] [address] [place] [phone] [phone] * Pap Smear (07/18/2021 12:00 AM EDT) Swab Historical Provider LAB CYTOLOGY ORDERABLES F inal Result [address], [place] [address] from Last 3 Months or Most Recently Relevant to Health Maintenance Insurance [facility] C3 DENTAL-[facility] MEDICAID STAND ADULT [facility] [place] [place] [address] [place] [address] [facility] [address] Advance Directives Documents on File Type Date Recorded Patient Medical Staff Services Coordinator Expl anation Advance Directives and Living Will 12/18/2023 1:57 PM Health Care Proxy Care Teams Manager Motor Relationship Specialty Start Date End Date Rose Walker MD [address] [place] [phone] PCP - General Family Medicine 02/17/18
--- OUTSIDE RECORDS SUMMARY | 2024-04-14 08:14 | XMS_ITS | Encounter Summary ---
Author Organization [employer] Address [address] [facility] 7[address] [place] [address] Care Team Providers Care Commercial Litigation Paralegal Name Role Phone Rose Walker MD Primary Care Provider [phone]- [phone] Reason for Referral * Consultation (Routine) - Closed Specialty Diagnoses / Procedures Referred By Diana t Referred To Contact Obstetrics and Gynecology Diagnoses , unspecified gestational age Rose Walker MD [address] [place] [phone] Phone: tel: fax: [facility] [address] (Main Hospital Entrance) [place], [place] Phone: tel: fax: Referral ID Status Reason Start Date Expiration Date V isits Requested Visits Authorized [id number] Closed Specialty Services Required 04/09/2024 04/09/2025 30 30 Encounter Details Date Type Department Care Team (Late st Contact Info) Description 04/09/2024 Orders Only [facility] [address] [place], [place] [phone] Rose Walker MD [address] [place] [address] , unspecified gestational age (Primary Dx) Social History Tobacco Use Types [...] Description 06/02/2024 11:15 AM EDT Office Visit [facility] [address] [place] [address] Rose Walker MD [address] [place] [address] Scheduled Referrals Name Type Priority Associated Diagnoses Orde r Schedule Referral to Obstetrics / Gynecology Outpatient Referral Routine , unspecified gestational age Expected: 04/09/2024 (Approximate), Expires: 04/09/2025 documented as of this encounter Goals Goal Patient Goal Type Associated Problems Recent Progress Patient-Stated? Author Smoking cessation General No Lucie Oconnell, CodyD documented as of this encounter Visit Diagnoses Diagnosis , unspecified gestational age- Primary documented in this encounter Additional Health Concerns Assessment Noted Time PHQ-9 Depression Total Score: 5 12/17/19 24 4:06 PM EDT documented as of this encounter Care Teams Commercial Litigation Paralegal Relationship Specialty Start Date End Date Rose Walker MD [address] [place] [phone] PCP - General Family Medicine 02/17/18 documented as of this encounter
--- OUTSIDE RECORDS SUMMARY | 2024-04-14 08:14 | XMS_ITS | Encounter Summary ---
Author Organization [employer] Address [address] [facility] [address]t [place] [address] Care Team Providers Care Production Gear Cutter Name Role Phone Rose Walker MD Primary Care Provider [phone]- [phone] Reason for Visit * Reason Onset Date Comments Prior Authorization 03/25/2024 Kade Encounter Details Date Type Department Care Team ([facility] st Contact Info) Description 03/25/2024 Telephone [facility] [address] [place] [address] Rose Walker MD [address] [place] [address] Prior Authorization (Kade) Social History Tobacco Use Types Packs/Day Years [...] encounter Miscellaneous Notes * Telephone Encounter - Lizbeth Escobedo - 03/25/2024 3:04 PM EST PA request received for Wegovy 2.4 MG/0.75ML. Last appt/weight recorded on 12/18/2023. requires weight info<90 days. If agree with PA, please send message to [place] to schedule as pt will need recent appt/weight chk. Thank you documented in this encounter Plan of Treatment Upcoming Encounters Date Type Department Care Team ([facility] st Contact Info) Description 06/02/2024 11:15 AM EDT Office Visit [facility] [address] [place] [address] Rose Walker MD [address] [place] [address] documented as of this encounter Goals Goal Patient Goal Type Associated Problems Recent Progress Patient-Stated? Author Smoking cessation General No Lucie Oconnell, PharmD documented as of this encounter Visit Diagnoses Not on filedocumented in this encounter Additional Health Concerns Assessment Noted Time PHQ-9 Depression Total Score: 5 12/17/19 24 4:06 PM EDT documented as of this encounter Care Teams Production Gear Cutter Relationship Specialty Start Date End Date Rose Walker MD [address] [place] [address] PCP - General Family Medicine 02/17/18 documented as of this encounter
--- OUTSIDE RECORDS SUMMARY | 2024-04-14 08:14 | XMS_ITS | Encounter Summary ---
Author Organization [employer] Address [address] [facility] [address] [place] [address] Care Team Providers Care Supervisor [employer] Name Role Phone Rose Walker MD Primary Care Provider [phone]- [phone] Reason for Visit * Reason Onset Date Comments Appointment Request 04/06/2024 Encounter Details Date Type Department Care Team ([facility] st Contact Info) Description 04/06/2024 Telephone [facility] [address] [place] [address] Rose Walker MD [address] [place] [address] Appointment Request Social History Tobacco Use Types Packs/Day Years [...] encounter Miscellaneous Notes * Telephone Encounter - Alida Castillo RN - 04/09/2024 10:22 AM EST Telephone call placed to patient in regards to message below. Patient did not go to [facility] or [facility]. Call to status check. No answer, left voicemail. Patient to callas needed. * Telephone Encounter - Marly Shafer RN - 04/08/2024 11:51 AM EST Telephone call returned to pt. Pt reports this is her 4th , positive home test on 03/31/24, states first day of last menstrual period was 02/03/25, reports breast tenderness, confirms already taking prenatals, requests OB referral to [facility]. Pt asking about next steps in terms of Rhogam, reports having needed it in the past. Pt then reports cramping x several days that started off intermittent, described as stabbing that has become continuous. Denies spotting. Toxicology Supervisor advised pt to go to ED now given symptoms for evaluation. Pt states [place] and is wondering about insurance. Advised pt that she should still go to ED regardless and they have insurance specialists there to talk to. Advised pt of importance of going now, pt verbalized understanding, in agreement with plan. Will message PCP and task to status check. * Telephone Encounter - Marly Shafer RN - 04/08/2024 11:02 AM EST Telephone call x3 to pt, no answer, left voicemail to call back [facility]. Sent message on [employer]. Will task to call again. * Telephone Encounter - Marly Shafer RN - 04/07/2024 10:59 AM EST Telephone call x2 to pt regarding positive home test. No answer, left voicemail to call back [facility]. * Telephone Encounter - Gavino Guerrero - 04/07/2024 9:01 AM EST Tc from pt returning call regarding message prior. * Telephone Encounter - Marly Shafer RN - 04/06/2024 2:23 PM EST Telephone call returned to pt regarding below message. No answer, left voicemail to call back [facility]. Will task to call again. * Telephone Encounter - Jennifer Moses - 04/06/2024 10:17 AM EST Tc from pt requesting a callback as she will like to speak to [place] to let them know she did a test is positive and she will like to know what are the next steps. [phone] documented in this encounter Plan of Treatment Upcoming Encounters Date Type Department Care Team (Late st Contact Info) Description 06/02/2024 11:15 AM EDT Office Visit [address] [address] Rose Walker MD [address] [place] [address] documented as of this encounter Goals Goal Patient Goal Type Associated Problems Recent Progress Patient-Stated? Author Smoking cessation General No Lucie Oconnell, CodyD documented as of this encounter Visit Diagnoses Not on filedocumented in this encounter Additional Health Concerns Assessment Noted Time PHQ-9 Depression Total Score: 5 12/17/19 24 4:06 PM EDT documented as of this encounter Care Teams Supervisor [employer] Relationship Specialty Start Date End Date Rose Walker MD [address] [place] [address] PCP - General Family Medicine 02/17/18 documented as of this encounter
--- OUTSIDE RECORDS SUMMARY | 2024-04-14 08:14 | XMS_ITS | Encounter Summary ---
Author Organization [employer] Address [address] [facility] [address]t [place] [address] Care Team Providers Care Research Psychologist Name Role Phone Rose Walker MD Primary Care Provider +1- [phone] Reason for Visit * Reason Onset Date Comments Med Refill 10/09/2023 Encounter Details Date Type Department Care Team (Late st Contact Info) Description 10/09/2023 Refill [facility] [address] [place] [address] Melissa Han DO [address] [place] [address] Social History Tobacco Use Types Packs/Day Years [...] Visit [facility] [address] [place] [address] Rose Walker MD [address] [place] [address] documented as of this encounter Goals Goal Patient Goal Type Associated Problems Recent Progress Patient-Stated? Author Smoking cessation General No Lucie Oconnell, PharmD documented as of this encounter Visit Diagnoses Not on filedocumented in this encounter Care Teams Research Psychologist Relationship Specialty Start Date End Date Rose Walker MD [address] [place] [phone] PCP - General Family Medicine 02/17/18 documented as of this encounter
--- OUTSIDE RECORDS SUMMARY | 2024-04-14 08:14 | XMS_ITS | Encounter Summary ---
Author Organization [employer] Address [address] [facility] 7t [place] [address] Care Team Providers Care Manager Business Continuity Name Role Phone Rose Walker MD Primary Care Provider +1- [phone] Encounter Details Date Type Department Care Team (Late st Contact Info) Description 04/11/2024 Orders Only GENERIC EXTERNAL DATA DEPARTMENT Provider, Generic External Data Social History Tobacco Use Types Packs/Day Years [...] Description 06/02/2024 11:15 AM EDT Office Visit [facility] [address] [place] [address] Rose Walker MD [address] [place] [address] documented as of this encounter Goals Goal Patient Goal Type Associated Problems Recent Progress Patient-Stated? Author Smoking cessation General No Lucie Oconnell, CodyD documented as of this encounter Procedures Procedure Name Priority Date/Time Associated Diagnosis Comments US OB PELVIS TRANSVAGINAL Routine 04/11/2024 11:57 PM EST CBC WITH AUTO DIFFERENTIAL Routine 04/11/2024 9:42 PM EST HCG, TOTAL, QN Routine 04/11/2024 9:42 PM EST COMPREHENSIVE METABOLIC PANEL Routine 04/11/2024 9:42 PM EST documented in this encounter Results * US OB Pelvis with Transvaginal (04/11/2024 11:57 PM EST) Anatomical Region Laterality Modality Pelvis Ultrasound 04/11/2024 11:5 7 PM EST Narrative 04/11/2024 11:59 PM EST ? [facility] ?[address] ?[place] [address] ? Ultrasound Report ? Signed ? Patient: Ascencio,Raquel R ?MR#: [id number] ?? [id number] ? : 1995 ?Acct:[id number] ? Age/Sex: 28 / F ?ADM Date: 02/23/25 ? Loc: HO.ED ? Attending Dr: ? Ordering Physician: Marly Jean CNP ?? Date of Service: 04/11/24 ?? Procedure(s): US OB pelvic and transvaginal ?? Accession Number(s): [id number] ? cc: Marly Jean CNP; Rose Walker [...] by Leo Lawler MD in OV> ? 04/11/242357 ? DD/ 56 ? TD/TT: 04/11/242356 ? Professor Of Exercise Science: ? Procedure Note Donotuseinterpreter, Image - 04/12/[address] [address] Ultrasound Report Signed Patient: Raquel Ascencio RMR#: [id number] : 1995Acct:[id number] Age/Sex: 28 / FADM Date: 04/11/24 Loc: HO.ED Attending Dr: Ordering Physician: Marly Jean CNP Date of Service: 04/11/24 Procedure(s): US OB pelvic and transvaginal Accession Number(s): [id number] cc: Marly Jean CNP; Rose Walker MD [...] in OV> 04/11/242357 DD/ 56 TD/TT: 04/11/242356 Professor Of Exercise Science: [facility] External Provider IMG US PROCEDURES Edited Result - Final * hCG, Total, Quantitative (04/11/2024 9:42 PM EST) HCG Quantitative 645 mIU/mL [facility] Comment:Weeks post LMP Appro ximate hCG(Last Menstrual Period) Range (mIU/ml)3 - 4 weeks 9 - 1304 - 5 weeks 75 - 2,6005 - 6 weeks 850 - 20,8006 - 7 weeks 4000 - 100,2007 - 12 weeks 11,500 - 289,33394 - 16 weeks 18,300 - 137,20828 - 29 weeks (2nd trimester) 1,400 - 53,67704 - 41 weeks (3rd trimester) 940 - 60,000The Thornton B- hCG assay is used for the early detection ofpregnancy; it cannot be used to diagnose any conditionunrelated to . If a B-hCG level is not supportedby the clinical evidence, results should be confirmed by analternative method (qualitative urine hCG, for example). 04/11/2024 9:42 PM EST 04/11/2024 9:46 PM EST Generic External Data Provider LAB BLOOD ORDERAB LES Final Result [facility] [address] [place] [phone] * (ABNORMAL) Comprehensive Metabolic Panel (04/11/2024 9:42 PM EST) Pathologist [facility] Sodium 139 135 - 145 mmol/L [facility] Potassium 4.0 3.3 - 5.1 mmol/L [facility] Comment:Slight Hemolysis.Int erpret result with caution. Chloride 110(H) 96 - 108 mmol/L [facility] Carbon Dioxide 21(L) 22 - 29 mmol/L [facility] Anion Gap 12 12 - 20 [facility] Urea Nitrogen (BUN) 12 9 - 16 mg/dL [facility] Creatinine, Serum 0.71 0.5 - 1.4 mg/dL [facility] Creatinine Clr Calc Pharmacy 121.3 [facility] Comment:Provided height and weight: 154.94 cm,92.7 kg.eGFR (calculated from the MDRD study equation) and eCrCl(calculated from the Cockcroft-Gault equation) are based ondifferent parameters and may not yield comparable results.If eCrCl result is absurd, please check patient'sheight/weight. Estimated Glomerular Filt Rate >60 [facility] Comment:Chronic Kidney Disea se: Estimated GFR < 60 mL/min/1.82b1Fztjdu Kidney Disease: Estimated GFR < 15 mL/min/1.73m2 Glucose 105 60 - 115 mg/dL [facility] Calcium 8.9 8.4 - 10.2 mg/dL [facility] Bilirubin, Total 0.1 0.0 - 1.0 mg/dL [facility] Aspartate Amino Transferase 24 5 - 31 U/L [facility] Comment:Slight Hemolysis.Int erpret result with caution. Alanine Aminotransferase 22 0 - 31 U/L [facility] Total Protein 7.6 6.5 - 8.0 g/dL [facility] Albumin Level 3.7 3.5 - 5.0 g/dL [facility] Alkaline Phosphatase 60 39 - 117 U/L [facility] 04/11/2024 9:42 PM EST 04/11/2024 9:46 PM EST us Generic External Data Provider LAB BLOOD ORDERAB LES Final Result [facility] [address] [place] [phone] * (ABNORMAL) CBC auto differential (04/11/2024 9:42 PM EST) White Blood Count 12.2(H) 4.8 - 10.8 X10*3/uL [facility] Red Blood Count 4.48 4.20 - 5.50 X10*6/uL [facility] Hemoglobin 13.3 12.0 - 16.0 g/dl [facility] Hematocrit 38.8 37.0 - 47.0 % [facility] Mean Corpuscular Volume 86.6 80.0 - 98.0 fL [facility] Mean Corpuscular Hemoglobin 29.7 27.0 - 33.0 pg [facility] Mean Corpuscular HGB Conc 34.3 31.0 - 35.0 g/dl [facility] Red Cell Distribution Width 14.3 11.0 - 16.0 % [facility] Platelet Count 314 160 - 400 X10*3/uL [facility] Mean Platelet Volume 10.3 9.4 - 12.3 fL [facility] Neutrophils Percent Auto 58.5 45 - 73 % [facility] Imm Gran Pct Auto 0.5(H) 0.0 - 0.4 % [facility] Lymphocytes Percent Auto 33.9 20 - 40 % [facility] Monocytes Percent Auto 5.7 2 - 11 % [facility] Eosinophils Percent Auto 0.9 0 - 4 % [facility] Basophils Percent Auto 0.5 0 - 2 % [facility] NRBC Pct Auto 0.0 0.0 - 0.2 /100WBC [facility] Neutrophils Absolute Auto 7.1 2.0 - 8.3 x10*3/uL [facility] Imm Gran Abs Auto 0.06(H) 0.00 - 0.03 X10*3/uL [facility] Lymphocytes Absolute Auto 4.1 1.2 - 4.9 X10*3/uL [facility] Monocytes Absolute Auto 0.7 0.1 - 1.2 X10*3/uL [facility] Eosinophils Absolute Auto 0.1 0.0 - 0.4 X10*3/uL [facility] Basophils Absolute Auto 0.1 0.0 - 0.2 X10*3/uL [facility] NRBC Abs Auto 0.000 0.0 - 0.012 X10*3/uL [facility] 04/11/2024 9:42 PM EST 04/11/2024 9:46 PM EST us Generic External Data Provider LAB BLOOD ORDERAB LES Final Result Performing Organization Address City/State/[facility] Co de Phone Number [facility] [address] [place] [address] [phone] documented in this encounter Visit Diagnoses Not on filedocumented in this encounter Additional Health Concerns Assessment Noted Time PHQ-9 Depression Total Score: 5 12/17/19 24 4:06 PM EDT documented as of this encounter Care Teams Manager Business Continuity Relationship Specialty Start Date End Date Rose Walker MD [address] [place] [phone] PCP - General Family Medicine 02/17/18 documented as of this encounter
--- OUTSIDE RECORDS SUMMARY | 2024-04-14 08:14 | XMS_ITS | Encounter Summary ---
Author Organization [employer] Address 75 [facility] 7t [place] [address] Care Team Providers Care Planer Tailer Name Role Phone Rose Walker MD Primary Care Provider + [phone] Lucie Benjamin PharmD Unavailable [phone]- [phone] Reason for Visit * Reason Comments Med Refill Encounter Details Date Type Department Care Team (Late st Contact Info) Description 07/22/[address] [facility] [address] [place] [address] [phone] Mayur Vigil MD [address] [place] [address] [phone] Social History Tobacco Use Types Packs/Day Years [...] 11:15 AM EDT Office Visit [facility] [address] [place] [phone] Rose Walker MD [address] [place], [place] [phone] documented as of this encounter Goals Goal Patient Goal Type Associated Problems Recent Progress Patient-Stated? Author Smoking cessation General No Lucie Oconnell, Niki documented as of this encounter Visit Diagnoses Not on filedocumented in this encounter Care Teams Planer Tailer Relationship Specialty Start Date End Date Rose Walker MD [address] [place] [address] PCP - General Family Medicine 02/17/18 Lucie Benjamin, PharmD [address] [place] [address] Pharmacist Internal Medicine 06/11/22 12/16/22 documented as of this encounter
--- OUTSIDE RECORDS SUMMARY | 2024-04-14 08:14 | XMS_ITS | Encounter Summary ---
Author Organization [employer] Address [address] [facility] 7t [place] [address] Care Team Providers Care Pipeliner Name Role Phone Rose Walker MD Primary Care Provider +1- [phone] Encounter Details Date Type Department Care Team (Late st Contact Info) Description 04/12/2024 Orders Only GENERIC EXTERNAL DATA [...] Description 06/02/2024 11:15 AM EDT Office Visit [facility] [address] [place] [address] Rose Walker MD [address] [place] [address] documented as of this encounter Goals Goal Patient Goal Type Associated Problems Recent Progress Patient-Stated? Author Smoking cessation General No Lucie Oconnell, CodyD documented as of this encounter Procedures Procedure Name Priority Date/Time Associated Diagnosis Comments URINALYSIS, COMPLETE, WITH REFLEX TO CULTURE Routine 04/12/2024 12:10 AM EST CULTURE, URINE, ROUTINE Routine 04/12/2024 12:10 AM EST documented in this encounter Results * Culture, Urine, Routine (04/12/2024 12:10 AM EST) Urine Urine specimen obtained by clean catch procedure / Unknown 04/12/2024 12:10 AM EST 04/12/2024 12:22 AM EST Comment:UACC Narrative [facility] - 04/13/2024 9:18 AM EST Lactobacillus species Quant > 100,000 cfu/mL Susc N/A Susceptibility not routinely performed on this isolate. Specimen Source: Urine clean catch us Generic External Data Provider LAB MICROBIOLOGY - GENERAL ORDERABLES Final Result [facility] [address] [place] [phone] [phone] * (ABNORMAL) Urinalysis, Complete, with Reflex to Culture (04/12/2024 12:10 AM EST) Color Urine Yellow [facility] Appearance Urine Cloudy [facility] PH 6.0 5.0 - 9.0 [facility] Glucose Urine UA Negative Negative mg/dL [facility] Urine Blood Negative Negative [facility] Specific [place] - Urine 1.025 1.005 - 1.025 [facility] Urine Protein Negative Neg-Trace mg/dL [facility] Urine Ketones Negative Negative mg/dL [facility] Nitrite Urine Negative Negative [facility] Leukocyte Esterase Urine Moderate (2+)(A) Negative [facility] RBC Urine 0-2 0 - 2 /HPF [facility] Urine WBC 6-10(A) 0 - 5 /HPF [facility] Urine Squamous Epithelial Cell 11-20 0 - 2 /HPF [facility] Urine Bacteria 1+ None Seen [facility] Hyaline Casts, Urine 0-2 0 - 2 /LPF [facility] 04/12/2024 12:1 0 AM EST 04/12/2024 12:13 AM EST Narrative [facility] - 04/12/2024 12:21 AM EST [id number], Clean Catch us Generic External Data Provider LAB URINE ORDERAB LES Final Result [facility] [address] [place] [phone] documented in this encounter Visit Diagnoses Not on filedocumented in this encounter Additional Health Concerns Assessment Noted Time PHQ-9 Depression Total Score: 5 12/17/19 24 4:06 PM EDT documented as of this encounter Care Teams Pipeliner Relationship Specialty Start Date End Date Rose Walker MD [address] [place] [phone] PCP - General Family Medicine 02/17/18 documented as of this encounter
--- OUTSIDE RECORDS SUMMARY | 2024-04-14 08:14 | XMS_ITS | Encounter Summary ---
Author Organization [employer] Address [address] [facility] 7t [place] [address] Care Team Providers Care Consulting Technical Director Name Role Phone Rose Walker MD Primary Care Provider [phone]- [phone] Reason for Visit * Reason Onset Date Comments Med Refill 10/25/2023 Encounter Details Date Type Department Care Team (Late st Contact Info) Description 10/25/2023 Refill [facility] [address] [place] [address] Rose Walker MD [address] [place] [address] Obesity (BMI 35.0-39.9 without comorbidity) Social History [...] Description 06/02/2024 11:15 AM EDT Office Visit [facility] [address] [place] [address] [phone] Rose Walker MD [address] [place] [address] [phone] documented as of this encounter Goals Goal Patient Goal Type Associated Problems Recent Progress Patient-Stated? Author Smoking cessation General No Lucie Oconnell, PharmD documented as of this encounter Visit Diagnoses Diagnosis Obesity (BMI 35.0-39.9 without comorbidity) documented in this encounter Care Teams Consulting Technical Director Relationship Specialty Start Date End Date Rose Walker MD [address] [place] [address] [phone] PCP - General Family Medicine 02/17/18 documented as of this encounter
--- OUTSIDE RECORDS SUMMARY | 2024-04-14 08:14 | XMS_ITS | Encounter Summary ---
Author Organization [employer] Address [address] [facility] [address] 7t h Floor [place] [phone] Care Team Providers Care Lead Assistant Manager Name Role Phone Rose Walker MD Primary Care Provider [phone]- [phone] Reason for Visit * Reason Onset Date Comments appt 03/26/2024 I left a Vm to t he pt to call back to schedule an appt for follow up Wt check. Encounter Details Date Type Department Care Team (Late st Contact Info) Description 03/26/2024 Telephone [facility] [address] [place], [place] [phone] Radha Oneill [place] appt (I left a Vm to the pt to call back to schedule an appt for follow up Wt check.) Social History Tobacco Use Types Packs/Day Years [...] encounter Miscellaneous Notes * Telephone Encounter - Radha Oneill MA - 03/26/2024 1:55 PM EST I left a Vm to the pt to call back to schedule an appt for follow up Wt check. documented in this encounter Plan of Treatment Upcoming Encounters Date Type Department Care Team (Late st Contact Info) Description 06/02/2024 11:15 AM EDT Office Visit [facility] [address] [place] [phone] Rose Walker MD [address] [place] [address] documented as of this encounter Goals Goal Patient Goal Type Associated Problems Recent Progress Patient-Stated? Author Smoking cessation General No Piers-GambLucie lee, PharmD documented as of this encounter Visit Diagnoses Not on filedocumented in this encounter Additional Health Concerns Assessment Noted Time PHQ-9 Depression Total Score: 5 12/17/19 24 4:06 PM EDT documented as of this encounter Care Teams Lead Assistant Manager Relationship Specialty Start Date End Date Rose Walker MD [address] [place] [address] PCP - General Family Medicine 02/17/18 documented as of this encounter
--- OUTSIDE RECORDS SUMMARY | 2024-04-14 08:14 | XMS_ITS | Encounter Summary ---
Author Organization [employer] Address [address] [place] [address] 7[address] [place] [address] Care Team Providers Care Wrapper Off Name Role Phone Rose Walker MD Primary Care Provider + [phone] Lucie Benjamin PharmD Unavailable [phone]- [phone] Encounter Details Date Type Department Care Team (Late Contact Info) Description 04/16/2022 Orders Only [facility] [address] [place] [address] [phone] Rose Walker MD [address] [place] [address] [phone] Insulin resistance (Primary Dx); Pre-diabetes Social History [...] Description 06/02/2024 11:15 AM EDT Office Visit [facility] [address] [place] [address] [phone] Rose Walker MD [address] [place] [address] [phone] documented as of this encounter Visit Diagnoses Diagnosis Insulin resistance- Primary Other abnormal glucose Pre-diabetes Other abnormal glucose documented in this encounter Care Teams Wrapper Off Relationship Specialty Start Date End Date Rose Walker MD [address] [place] [address] PCP - General Family Medicine 02/17/18 Lucie Benjamin PharmD [address] [place] [address] Pharmacist Internal Medicine 06/11/22 12/16/22 documented as of this encounter
[2024-04-14 09:23] LABS: HCG Quantitative 1849 mIU/mL
== END 2024-04-14 08:03 | disposition home or self-care (01) ==
LOC: HO.LAB 08:02
PROVIDERS: PCP Family Medicine; Visit Provider Emergency Medicine
DX: Z34.90 Encounter for supervision of normal pregnancy, unspecified, unspecified trimester (principal)
CPT/HCPCS: 36415; 84702

== ENCOUNTER 2024-07-28 10:13 | Outpatient (REF) | payer MEDICAID, SELFPAY ==
--- NOTE | ~2024-07-28 | US_ITS ---
EXAMINATION: US DIAGNOSTIC ULTRASOUND BREAST, RIGHT CLINICAL INFORMATION: 29-year-old female who is 20 weeks has a right breast palpable lump. Patient declined mammography today. Patient prefers ultrasound only.. COMPARISON: No prior imaging available for comparison. TECHNIQUE: Ultrasound of the breast is performed with real-time earl scale imaging and color Doppler. FINDINGS: Targeted color Doppler ultrasound scanning in the area the patient's palpable lump in the right breast at 6:00 5 cm from nipple demonstrates an intradermal oval hypoechoic vascular sebaceous cyst/epidermal inclusion cyst with internal vascular flow measuring 25 x 15 x 7 mm. The patient is not having pain in this area just palpable lump. Results are discussed with the patient at time of visit. US/US breast RT limited mamm only IMPRESSION: Intradermal oval hypoechoic vascular sebaceous cyst/epidermal inclusion cyst. Benign. If this area increases in size additional ultrasound imaging can be performed. Recommend clinical evaluation and follow-up. If the patient wishes to have the area removed it breast surgical consultation could be considered. ASSESSMENT: BI-RADS 2: Benign RECOMMENDATION: Recommend clinical evaluation follow-up. If the patient wishes this area to be excised breast surgical consultation could be considered for further evaluation. Electronically signed by: Madeline Raphael DO 07/28/2024 10:59 AM EDT
--- OUTSIDE RECORDS SUMMARY | 2024-07-28 11:32 | XMS_ITS | Encounter Summary ---
Author Organization [employer] Address 75 [facility] 7t [place] [address] Care Team Providers Care Coding Support Specialist Name Role Phone Rose Walker MD Primary Care Provider +1- [phone] Sosa Ospina Unavailable [phone] Chrissie Thomas Unavailable Reason for Visit * Reason Onset Date Comments Med Refill 08/02/2023 Encounter Details Date Type Department Care Team (Late st Contact Info) Description 08/02/2023 Refill [facility] [address] [place] [address] Rose Walker MD [address] [place] [address] Social History Tobacco Use Types Packs/Day Years [...] on filedocumented in this encounter Care Teams Coding Support Specialist Relationship Specialty Start Date End Date Rose Walker MD [address] [place] [phone] PCP - General Family Medicine 02/17/18 Sosa Ospina Registered Nurse 06/25/24 07/05/24 Chrissie Thomas 06/25/24 07/05/24 Gwyn Gonzalez [facility] DEHYDROGENATION OPERATOR 06/02/24 documented as of this encounter
== END 2024-07-28 10:14 | disposition home or self-care (01) ==
LOC: HO.MAMMO 10:13
PROVIDERS: PCP Family Medicine; Visit Provider Family Medicine
DX: N63.25 Unspecified lump in the left breast, overlapping quadrants (principal)
CPT/HCPCS: 76642

== ENCOUNTER → 2024-07-28 10:15 | Outpatient (BNV) | payer MEDICAID, SELFPAY | PROVIDERS: PCP Family Medicine; Visit Provider Internal Medicine | DX: N60.11 Diffuse cystic mastopathy of right breast (principal) | CPT/HCPCS: 76642 ==